=== PATIENT | male | born 1950 | race African-American/Black ===

== ENCOUNTER 2017-01-26 10:22 | Inpatient (IN) | payer BC, MEDICAID ==
[~2017-01-26] VITALS: Ht 172.7 cm; Wt 82.1 kg
[2017-01-26] MEDS ORDERED: NITROGLYCERIN PACKET 1 GM PACKET TD ONE (10:30)
[2017-01-26] MEDS ORDERED: ASPIRIN 81 MG TAB.CHEW PO ONE (10:30)
--- NOTE | 2017-01-26 10:30 | NUR ---
LAB AT BEDSIDE BLOOD SAMPLE COLLECTED SENT TO LAB
[2017-01-26] MEDS ORDERED: ASPIRIN EC 81 MG TABLET.DR PO ONE (10:35)
[2017-01-26] MEDS ORDERED: NITROGLYCERIN PACKET 1 GM PACKET ONE (10:36)
[2017-01-26 10:40] LABS: MONOCYTES # (AUTO) 0.6 /CMM (0.1-1.30)
--- NOTE | 2017-01-26 10:46 | NUR ---
XRAY AT [facility]
[2017-01-26 10:47] LABS: BASOPHILS # (AUTO) 0.2 /CMM (0.0-0.2); NEUTROPHILS # (AUTO) 3.1 /CMM (1.8-8.9)
[2017-01-26 10:50] LABS: BASOPHILS % (AUTO) 3.7 % (0.0-2.0); EOSINOPHILS % (AUTO) 0.6 % (0.0-6.0); HEMATOCRIT 53 % (39-51); LYMPHOCYTES # (AUTO) 2.2 /CMM (0.8-4.8); LYMPHOCYTES % (AUTO) 36.5 % (20.0-44.0); MEAN CORPUSCULAR HEMOGLOBIN 31 PG (26.0-33.0); MEAN CORPUSCULAR HGB CONC 35 g/dl (31.0-36.0); MEAN CORPUSCULAR VOLUME 90 fL (80-96); MONOCYTES % (AUTO) 9.6 % (2.0-12.0); NEUTROPHILS % (AUTO) 49.6 % (43.0-81.0); PLATELET COUNT (AUTO) 208 /CMM (150-450); RDW COEFFICIENT OF VARIATION 13.1 (11.5-15.0); RED BLOOD CELL COUNT(AUTO) 5.84 MIL/uL (4.5-6.0); WHITE BLOOD COUNT (AUTO) 6.1 K/uL (4.3-11.0)
[2017-01-26 10:51] LABS: HEMOGLOBIN 18.3 g/dL (13.5-17.5)
[2017-01-26 10:56] LABS: CALCIUM, SERUM 9.5 mg/dL (8.5-10.1); CREATININE 1.2 mg/dL (0.6-1.3)
[2017-01-26 10:59] LABS: INR 1.06 (0.87-1.13)
[2017-01-26] MEDS ORDERED: QUET25TA PO (11:00)
[2017-01-26] MEDS ORDERED: BUPR300T54 PO (11:00)
[2017-01-26] MEDS ORDERED: IBUP-1955 PO (11:00)
[2017-01-26] MEDS ORDERED: AMLO10TA2 PO (11:00)
[2017-01-26] MEDS ORDERED: VALS1TAB54 PO (11:00)
[2017-01-26 11:06] LABS: BILIRUBIN,DIRECT 0.5 mg/dL (0.0-0.2); BILIRUBIN,TOTAL 2.1 mg/dL (0.2-1.0); TOTAL PROTEIN, SERUM 8.3 g/dL (6.4-8.2)
[2017-01-26 11:12] LABS: TROPONIN I 0.048 ng/mL (0.00-0.056)
--- NOTE | 2017-01-26 11:28 | NUR ---
DR. CECI BATRES SIZING END BANDER
[2017-01-26 11:32] LABS: EOSINOPHILS % (MANUAL) 1 % (0-4); LYMPHOCYTES % (MANUAL) 44 % (16-48); MONOCYTES % (MANUAL) 9 % (0-11.0); NEUTROPHILS % (MANUAL) 46 (42-76)
[2017-01-26 11:33] LABS: PLATELET ESTIMATE ADEQUATE
[2017-01-26] MEDS ORDERED: POTASSIUM CHLORIDE 20 MEQ TAB.PRT.SR PO ONE (12:00)
--- NOTE | 2017-01-26 12:28 | NUR ---
GAVE REPORT TO GERARDO ANTON TELE 309-1 CECI SÁNCHEZ ADMITTING. CHEST PAIN DX
--- NOTE | 2017-01-26 12:28 | NUR ---
WILL TRANSFER VIA ACLS PROTOCOL
[2017-01-26] MEDS ORDERED: POTASSIUM CL. PREMIX PERIPHER. 50 ML ONE (12:30)
[2017-01-26] MEDS ORDERED: POTASSIUM CHLORIDE 20 MEQ POWDER PACKET ONE (12:30)
[2017-01-26] MEDS ORDERED: IV SET PRIMARY PUMP SET 1 EA INFUS.SET MC ONE ×2 (12:30→19:42)
--- NOTE | 2017-01-26 12:30 | NUR ---
APPLICATION INFRASTRUCTURE ENGINEER NOTES RECEIVED PATIENT IN STABLE CONDITION FROM ER NURSE WITH PAPERWORK, PERSONAL BELONGINGS AND FAMILY MEMBER AT BEDSIDE. DR AWARE TO DO MED REC AND FINISH ADMISSION ORDERS. ORDERED DVT PUMP AND IV POLE AND PUMP FROM [facility]TR[facility]. PATIENT WISHES TO BE FULL CODE. GAVE CONTAINER FOR DENTURES, ALL NEEDS MET. ORIENTED TO TV SET AND CALL LIGHT. CALL LIGHT WITHIN REACH, 2 1/2 SIDE RAILS UP FOR SAFETY, NONSKID SOCKS ON, BEDSIDE TABLE WITHIN REACH. PATIENT AMBULATORY, NO S/S OF SOB OR DIZZINESS. PATIENT WITH COMPLAINTS OF THROBBING 7/10 CHEST (PECTORAL) MUSCLE PAIN, AND THROAT PAIN, FOLLOWED UP WITH DR CARR: PAIN MEDICATION. WAITING FOR RESPONSE. REPOSITIONED PATIENT COMFORTABLY, BUT PAIN STILL REQUESTING PAIN MEDICATION. PATIENT RESTING IN STABLE CONDITION, WAITING FOR SNACK FROM KITCHEN TO ARRIVE. WILL CONTINUE TO MONITOR.
[2017-01-26] MEDS: POTASSIUM CL. PREMIX PERIPHER. 50 ML IV SCH ×2 (12:36→16:16)
[2017-01-26] MEDS ORDERED: ACETAMINOPHEN 325 MG TABLET PO PRN (13:30)
[2017-01-26] MEDS ORDERED: ZOLPIDEM TARTRATE 5 MG TABLET PO PRN (13:30)
[2017-01-26] MEDS ORDERED: ONDANSETRON HCL/PF 4 MG/2 ML VIAL IVP PRN (13:30)
[2017-01-26] MEDS ORDERED: Z GUARD REMEDY 2 OZ OINT TP PRN (13:30)
[2017-01-26] MEDS ORDERED: MORPHINE SULFATE INJ 2 MG/ML DISP.SYRIN IV PRN (13:30)
[2017-01-26] MEDS ORDERED: IBUPROFEN 600 MG TABLET PO PRN (15:00)
[2017-01-26 16:00] VITALS: BP 152/103
[2017-01-26] MEDS: ENOXAPARIN SODIUM 40 MG/0.4 ML DISP.SYRIN SQ SCH (16:18)
[2017-01-26] MEDS: METFORMIN 500 MG TABLET PO SCH (18:04)
--- NOTE | 2017-01-26 18:05 | NUR ---
PATIENT COMPLAINED OF 6/10 PAIN AFTER MORPHINE ADMINISTRATION. ADMINISTERED TYLENOL ORDERED WITH METFORMIN AND ENCOURAGED WATER INTAKE. PATIENT WAS COOPERATIVE. WILL CONTINUE TO MONITOR.
--- NOTE | 2017-01-26 19:35 | NUR ---
COMMUNITY ADMINISTRATOR NOTE RECEIVED PATIENT FROM DAY SHIFT, PATIENT IS ALERT AND ORIENTEDX3, LOOKS WEAK, DENIES RESPIRATORY DISTRESS OR PAIN AT THIS TIME. AMBULATORY WITH STANDBY ASSIST, IV ON LEFT AC 22G IS PATENT AND INTACT, WILL CONNECT NS 100ML/HR. TELE MONITOR SR 93. SRX2, BED IN LOW POSITION, CALL LIGHT WITHIN REACH, WILL CONTINUE TO MONITOR PATIENT.
--- NOTE | 2017-01-26 19:39 | NUR ---
RN PM NOTES PATIENT RESTING IN BED, WAITING FOR SNACK AFTER DINNER, IN STABLE CONDITION, WITH NO COMPLAINTS OF PAIN, SOB OR DISTRESS NOTED. ADMISSION NOTES AND PICTURES COMPLETE. WILL ENDORSE TO NEXT SHIFT.
[2017-01-26 20:00] VITALS: BP 152/101
[2017-01-26] MEDS: IV NS 0.9% 1,000 ML IV PRN (20:03)
[2017-01-26] MEDS: QUETIAPINE FUMARATE 25 MG TABLET PO SCH (21:06)
[2017-01-26] MEDS: hydrALAZINE HCL 50 MG TABLET PO SCH (21:07)
--- NOTE | 2017-01-26 22:20 | NUR ---
SHOPPER INSIGHTS MANAGER NOTE PATIENT REQUESTED TO TAKE SLEEP MED, AMBIEN 5MG PO GIVEN.
[2017-01-27] VITALS: BP 113/74
[2017-01-27 04:00] VITALS: BP 146/100
[2017-01-27 06:30] LABS: BASOPHILS % (AUTO) 0.8 % (0.0-2.0); EOSINOPHILS # (AUTO) 0.1 /CMM (0.0-0.7); EOSINOPHILS % (AUTO) 1.5 % (0.0-6.0); HEMATOCRIT 53 % (39-51); HEMOGLOBIN 18.1 g/dL (13.5-17.5); LYMPHOCYTES # (AUTO) 1.7 /CMM (0.8-4.8); LYMPHOCYTES % (AUTO) 39.2 % (20.0-44.0); MEAN CORPUSCULAR HEMOGLOBIN 31 PG (26.0-33.0); MEAN CORPUSCULAR HGB CONC 34 g/dl (31.0-36.0); MEAN CORPUSCULAR VOLUME 90 fL (80-96); MONOCYTES # (AUTO) 0.4 /CMM (0.1-1.30); MONOCYTES % (AUTO) 9.2 % (2.0-12.0); NEUTROPHILS # (AUTO) 2.2 /CMM (1.8-8.9); NEUTROPHILS % (AUTO) 49.3 % (43.0-81.0); PLATELET COUNT (AUTO) 174 /CMM (150-450); RDW COEFFICIENT OF VARIATION 13.8 (11.5-15.0); RED BLOOD CELL COUNT(AUTO) 5.92 MIL/uL (4.5-6.0); WHITE BLOOD COUNT (AUTO) 4.5 K/uL (4.3-11.0)
[2017-01-27 06:42] LABS: ALBUMIN 3.4 g/dL (3.4-5.0); BILIRUBIN,TOTAL 1.5 mg/dL (0.2-1.0); CALCIUM, SERUM 8.8 mg/dL (8.5-10.1); CREATININE 1.1 mg/dL (0.6-1.3); MAGNESIUM 1.9 mg/dL (1.8-2.4); PHOSPHORUS 3.1 mg/dL (2.5-4.9); POTASSIUM 3.3 mmol/L (3.5-5.1); TOTAL PROTEIN, SERUM 7.3 g/dL (6.4-8.2)
--- NOTE | 2017-01-27 06:53 | NUR ---
HAND PACKER/PACKAGER NOTE PATIENT IS RESTING IN BED COMFORTABLY, DENIES RESPIRATORY DISTRESS OR PAIN AT THIS TIME. IV ON LEFT FA IS PATENT AND INTACT, FLUID IS RUNNING. TELE MONITOR SR 77. WILL ENDORSE TO DAY SHIFT NURSE FOR ISIDRO.
[2017-01-27 07:17] VITALS: BP 148/86
--- NOTE | 2017-01-27 07:30 | NUR ---
MS/RN OPENING NOTE PT. IS AWAKE, A&OX4 IN BED. PT. IS NPO FOR LEXISCAN. NO S/S OF DISTRESS, NO SOB, BREATHING IS EVEN AND UNLABORED. PT. HAS A LEFT ANTECUBITAL IV ACCESS SITE WITH IV FLUIDS INFUSING AT 100ML/HR. PT. HAS A WALKER NEAR BEDSIDE. BED IS IN LOW POSITION, CALL LIGHT WITHIN REACH, AND ALL NEEDS ATTENDED TO.
[2017-01-27 07:31] LABS: THYROID STIMULATING HORMONE 1.43 uIU/mL (0.358-3.74)
[2017-01-27 08:00] VITALS: BP 140/77
[2017-01-27] MEDS ORDERED: REGADENOSON 0.4 MG/5 ML DISP.SYRIN IVP ONE (09:16)
[2017-01-27] MEDS: NICOTINE PATCH (21MG) 21 MG PATCH.TD24 TD SCH (09:51)
[2017-01-27] MEDS: AMLODIPINE BESYLATE 10 MG TABLET PO SCH (09:52)
[2017-01-27] MEDS: hydrALAZINE HCL 50 MG TABLET PO SCH ×3 (09:53→16:51)
[2017-01-27] MEDS: METFORMIN 500 MG TABLET PO SCH ×2 (09:54→16:51)
[2017-01-27] MEDS: BUPROPION XL 150 MG TAB.ER.24 PO SCH (09:54)
[2017-01-27] MEDS: VALSARTAN 80 MG TABLET PO SCH (09:54)
[2017-01-27] MEDS: PANTOPRAZOLE 40 MG TABLET.DR PO SCH (09:54)
[2017-01-27] MEDS: POTASSIUM CHLORIDE 20 MEQ TAB.PRT.SR PO SCH ×3 (10:00→12:22)
--- NOTE | 2017-01-27 12:57 | NUR ---
NM:CARDIAC STRESS TEST WAS COMPLETED.TECH:RB.
[2017-01-27] MEDS: ENOXAPARIN SODIUM 40 MG/0.4 ML DISP.SYRIN SQ SCH (14:43)
[2017-01-27 16:00] VITALS: BP 136/84
--- NOTE | 2017-01-27 19:30 | NUR ---
MS RN OPENING NOTES: PATIENT IN BED, AOX4, ON ROOM AIR, BREATHING EVEN AND UNLABORED. BREATH SOUNDS CLEAR TO AUSCULTATION. DENIES ANY PAIN/ CHEST PAIN OF THIS TIME. PIV OVER LAC G 22 INTACT AND PATENT TO FLUSH. PROVIDED FOR COMFORT AND SAFETY. WILL CONT TO MONITOR./
--- NOTE | 2017-01-27 19:43 | NUR ---
MS/RN CLOSING NOTE PT. IS IN BED SLEEPING. NO S/S OF DISTRESS. PT. IS BREATHING UNLABORED AND EVENLY. WALKER IS NEAR BEDSIDE. BED IS IN LOW POSITION, 2 SIDE RAILS UP, AND CALL LIGHT WITHIN REACH.
[2017-01-27 20:00] VITALS: BP 149/87
[2017-01-27] MEDS: QUETIAPINE FUMARATE 25 MG TABLET PO SCH (22:06)
[2017-01-28] MEDS: IV NS 0.9% 1,000 ML IV PRN (06:01)
--- NOTE | 2017-01-28 06:47 | NUR ---
MS RN CLOSING NOTES: PATIENT IN BED, ASLEEP AT THIS TIME, BUT EASILY AWAKENED BY NAME BEING CALLED. APPEARS CALM AND IN NO DISTRESS. PATIENT DID NOT STATE HAVING ANY VISUAL OR AUDITORY HALLUCINATION, NO INAPPROPRIATE BEHAVIOR NOTED THROUGH SHIFT. PIV OVER LAC G22 INTACT AND PATENTLY RUNNING WITH NS AT 100 ML/HR. PROVIDED FOR COMFORT AND SAFETY. NO ACUTE CHANGE IN CONDITION NOTED THROUGH SHIFT. WILL ENDORSE TO AM RN FOR ISIDRO.
--- NOTE | 2017-01-28 07:42 | NUR ---
MS RN OPENING NOTE PATIENT IS ALERT AND ORIENTED x4. NO PAIN AT THIS TIME. NO SOB OR DISTRESS NOTED. IV INTACT AND PATENT NO REDNESS OR SWELLING NOTED. NO VISUAL OR AUDITORY HALLUCINATIONS PRESENT AT THIS TIME. CALL LIGHT WITHIN REACH. SAFETY MEASURES IMPLEMENTED. ABLE TO COMMUNICATE NEEDS. WILL CONTINUE TO MONITOR
[2017-01-28 08:00] VITALS: BP 149/92
[2017-01-28] MEDS: AMLODIPINE BESYLATE 10 MG TABLET PO SCH (08:20)
[2017-01-28] MEDS: BUPROPION XL 150 MG TAB.ER.24 PO SCH (08:20)
[2017-01-28] MEDS: NICOTINE PATCH (21MG) 21 MG PATCH.TD24 TD SCH (08:20)
[2017-01-28] MEDS: METFORMIN 500 MG TABLET PO SCH (08:20)
[2017-01-28] MEDS: PANTOPRAZOLE 40 MG TABLET.DR PO SCH (08:20)
[2017-01-28] MEDS: hydrALAZINE HCL 50 MG TABLET PO SCH ×2 (08:21→12:20)
[2017-01-28] MEDS: VALSARTAN 80 MG TABLET PO SCH (08:21)
[2017-01-28 12:20] VITALS: BP 132/91
--- NOTE | 2017-01-28 13:30 | NUR ---
MS RN NOTE PATIENT REFUSED TO HAVE DISCHARGE PICTURES TAKEN, PATIENT STATED "I'M SORRY IM LEAVING TODAY BUT NO PICTURES PLEASE" i EXPLAINED TO PATIENT THE REASON FOR DISCHARGE PICTURES BUT PATIENT POLITELY REFUSED.
[2017-01-28] MEDS ORDERED: ATOR10TA GT (13:35)
[2017-01-28] MEDS ORDERED: ASPI81TA2 PO (13:35)
[2017-01-28] MEDS: ENOXAPARIN SODIUM 40 MG/0.4 ML DISP.SYRIN SQ SCH (14:08)
--- NOTE | 2017-01-28 15:27 | NUR ---
MS ELECTROMECHANICAL TECHNICIAN NOTE PATIENT IS ALERT AND ORIENTED x4. NO PAIN AT THIS TIME. NO SOB OR DISTRESS NOTED. ALL DUE MEDICATION GIVEN ORDERED. SAFETY MEASURES IMPLEMENTED. PATIENT BELONGINGS ACCOUNTED FOR. IV REMOVED, SKIN INTACT. DISCHARGE INSTRUCTIONS GIVEN TO PATIENT AND BROTHER. LEFT VIA PRIVATE CAR WITH BROTHER. PATIENT GAVE DISCHARGE INSTRUCTIONS BACK.
== END 2017-01-28 15:25 | disposition home or self-care (01) | DRG 198 ==
LOC: ER 10:24 → TELE 11:57 → MED 01-27 09:08
PROVIDERS: ADMIT Nurse Practitioner Acute Care; ATTEND Nurse Practitioner Acute Care
DX: I25.10 Atherosclerotic heart disease of native coronary artery without angina pectoris (principal); I10 Essential (primary) hypertension; E11.9 Type 2 diabetes mellitus without complications; E78.5 Hyperlipidemia, unspecified; E87.6 Hypokalemia; I25.2 Old myocardial infarction; E80.4 Gilbert syndrome; E86.0 Dehydration; F17.210 Nicotine dependence, cigarettes, uncomplicated; F20.0 Paranoid schizophrenia; Z79.899 Other long term (current) drug therapy; R74.0 Nonspecific elevation of levels of transaminase and lactic acid dehydrogenase [LDH]; Z86.19 Personal history of other infectious and parasitic diseases
CPT/HCPCS: 36415; 71010-TC; 80048-TC; 80053-TC; 80061-TC; 80076-TC; 83735-TC; 84100-TC; 84443-TC; 84484-TC; 85025-TC; 85730-TC; 87081-TC; 93307-TC; A4606; A9502; J1650; J2270; J2785; J3480; J7030; Z7610

== ENCOUNTER 2017-07-30 01:09 | Emergency (ER) | payer BC ==
[~2017-07-30] VITALS: Ht 180.3 cm; Wt 82.1 kg
[~2017-07-30 01:09] MED LIST: AMLO10TA2 PO; ASPI81TA2 PO; ATOR10TA GT; BUPR300T54 PO; QUET25TA PO; VALS1TAB54 PO
--- NOTE | 2017-07-30 01:20 | NUR ---
TO BED 4 A 67 YO MALE PATIENT BIBRA C/O BILAT UPPER LEG PAIN. PATIENT IS AAOX4, NAD NOTED, VSS. PER PATIENT THIS PAIN ON HIS LEGS ARE CHRONIC, JUST '"WORSE TODAY THAT HE CAN NO LONGER WALK." COMFORT MEASURES RENDERED. GOWNED. AWAITING FOR ER MD HARTLEY.
[2017-07-30] MEDS ORDERED: ONDANSETRON HCL/PF 4 MG/2 ML VIAL IVP ONE (02:00)
[2017-07-30] MEDS ORDERED: MORPHINE SULFATE INJ 2 MG/ML DISP.SYRIN IV ONE (02:00)
--- NOTE | 2017-07-30 02:00 | NUR ---
started a saline lock on the left hand g20.
[2017-07-30] MEDS ORDERED: MORPHINE SULFATE INJ 10 MG/ML DISP.SYRIN ONE (02:11)
[2017-07-30] MEDS ORDERED: ONDANSETRON HCL/PF 4 MG/2 ML VIAL ONE (02:12)
--- NOTE | 2017-07-30 02:17 | NUR ---
medicated patient as ordered by Dr Meyers.
[2017-07-30 02:45] LABS: BASOPHILS % (AUTO) 0.8 % (0.0-2.0); EOSINOPHILS # (AUTO) 0.1 /CMM (0.0-0.7); EOSINOPHILS % (AUTO) 1.9 % (0.0-6.0); HEMATOCRIT 57 % (39-51); LYMPHOCYTES # (AUTO) 2.2 /CMM (0.8-4.8); LYMPHOCYTES % (AUTO) 47.4 % (20.0-44.0); MEAN CORPUSCULAR HEMOGLOBIN 31 PG (26.0-33.0); MEAN CORPUSCULAR HGB CONC 34 g/dl (31.0-36.0); MEAN CORPUSCULAR VOLUME 91 fL (80-96); MONOCYTES # (AUTO) 0.3 /CMM (0.1-1.30); MONOCYTES % (AUTO) 7.4 % (2.0-12.0); NEUTROPHILS % (AUTO) 42.5 % (43.0-81.0); PLATELET COUNT (AUTO) 199 /CMM (150-450); RDW COEFFICIENT OF VARIATION 13.4 (11.5-15.0); RED BLOOD CELL COUNT(AUTO) 6.26 MIL/uL (4.5-6.0); WHITE BLOOD COUNT (AUTO) 4.6 K/uL (4.3-11.0)
[2017-07-30 02:48] LABS: HEMOGLOBIN 19.2 g/dL (13.5-17.5)
[2017-07-30 02:59] LABS: CALCIUM, SERUM 8.8 mg/dL (8.5-10.1)
[2017-07-30 03:02] LABS: INR 0.98 (0.87-1.13); PROTHROMBIN TIME 10.2 SECS (9.5-12.7)
--- NOTE | 2017-07-30 03:05 | NUR ---
MD AWARE OF PT B/P, NO NEW ORDERS RECEIVED. PT STATES TAKES 2 DIFFERENT KINDS OF HYPERTENSIVE MEDICATIONS AND STATES DOESN'T REMEMBER IF HE TOOK IT TODAY.
[2017-07-30 03:10] LABS: EOSINOPHILS % (MANUAL) 2 % (0-4); LYMPHOCYTES % (MANUAL) 51 % (16-48); MONOCYTES % (MANUAL) 6 % (0-11.0); NEUTROPHILS % (MANUAL) 41 (42-76)
--- NOTE | 2017-07-30 03:28 | NUR ---
ptient taken to ct.
[2017-07-30] MEDS ORDERED: POTASSIUM CHLORIDE 20 MEQ TAB.PRT.SR PO ONE ×2 (03:30→04:14)
--- NOTE | 2017-07-30 03:31 | NUR ---
PT TO CT VIA STRETCHER, NAD NOTED.
[2017-07-30] MEDS ORDERED: IOHEXOL-300 100 ML VIAL IV ONE (03:34)
[2017-07-30] MEDS ORDERED: IV NS 0.9% 250 ML IV ONE (03:34)
--- NOTE | 2017-07-30 03:56 | NUR ---
PT BACK FROM CT, NAD NOTED. PT AMBULATORY TO RESTROOM.
--- NOTE | 2017-07-30 04:16 | NUR ---
MEDICATED PER MD ORDERS.
--- NOTE | 2017-07-30 06:36 | NUR ---
PT RESTING QUIETLY. AROUSES TO VERBAL STIMULI. RESP EVEN AND UNLABORED, NAD NOTED.
--- NOTE | 2017-07-30 07:11 | NUR ---
IV removed. Catheter intact and site benign. Pressure and 4x4 applied to site. No bleeding noted.Patient discharged to home in stable condition. Written and verbal after care instructions given. Patient verbalizes understanding of instruction. Pt ambulatory with a steady gait.
[2017-07-30 07:12] VITALS: BP 187/103
== END 2017-07-30 07:13 | disposition home or self-care (01) ==
LOC: ER 01:17
DX: M79.605 Pain in left leg (principal); M79.604 Pain in right leg; M48.061 Spinal stenosis, lumbar region without neurogenic claudication; F20.9 Schizophrenia, unspecified; I10 Essential (primary) hypertension; I70.0 Atherosclerosis of aorta; M16.11 Unilateral primary osteoarthritis, right hip; N40.0 Benign prostatic hyperplasia without lower urinary tract symptoms; M25.78 Osteophyte, vertebrae; I25.2 Old myocardial infarction; M51.26 Other intervertebral disc displacement, lumbar region; Z79.82 Long term (current) use of aspirin; Z88.0 Allergy status to penicillin
CPT/HCPCS: 36415; 72132; 80048; 82550; 85025; 85730; 96374; 96375; 99285; A4606; J2270; J2405; J7050; Q9967; Z7610

== ENCOUNTER 2017-10-24 10:49 | Inpatient (IN) | payer BC ==
[~2017-10-24] VITALS: Ht 180.3 cm; Wt 67.4 kg
[~2017-10-24 10:49] MED LIST changes: -AMLO10TA2 PO; +AMLO10TA6 PO; +ASPI-1169 PO; -ASPI81TA2 PO
--- NOTE | 2017-10-24 10:57 | NUR ---
JAMES FROM HOME DT LEFT SIDED WEAKNESS X 2 DAYS. PATIENT RECEIVED AWAKE AND ALERT. NOTED WITH SLIGHT WEAKNESS ON LEFT SIDE. PATIENT USES CANE FOR ASSIST. NO FACIAL DROOP NOTED. SKIN IS WARM TO TOUCH AND NON DIAPHORETIC. AFEBRILE. VSS. GOWNED AND PLACED ON TELE MONITOR,. PENDING MD HARTLEY
[2017-10-24] MEDS ORDERED: hydrALAZINE HCL IV 20 MG VIAL ONE ×2 (11:27→12:07)
[2017-10-24] MEDS ORDERED: hydrALAZINE HCL IV 20 MG VIAL IV ONE ×2 (11:30→12:30)
--- NOTE | 2017-10-24 12:20 | NUR ---
PT TAKEN TO CT.
[2017-10-24 12:28] LABS: SERUM AMMONIA 43 umol/L (11-32); THYROID STIMULATING HORMONE 0.742 uIU/mL (0.358-3.74)
[2017-10-24 12:53] LABS: BASOPHILS # (AUTO) 0.1 /CMM (0.0-0.2); BASOPHILS % (AUTO) 1.3 % (0.0-2.0); EOSINOPHILS % (AUTO) 0.6 % (0.0-6.0); HEMATOCRIT 56 % (39-51); LYMPHOCYTES # (AUTO) 2.1 /CMM (0.8-4.8); LYMPHOCYTES % (AUTO) 33.6 % (20.0-44.0); MEAN CORPUSCULAR HGB CONC 35 g/dl (31.0-36.0); MEAN CORPUSCULAR VOLUME 89 fL (80-96); MONOCYTES # (AUTO) 0.4 /CMM (0.1-1.30); MONOCYTES % (AUTO) 6.6 % (2.0-12.0); NEUTROPHILS # (AUTO) 3.8 /CMM (1.8-8.9); NEUTROPHILS % (AUTO) 57.9 % (43.0-81.0); PLATELET COUNT (AUTO) 208 /CMM (150-450); RDW COEFFICIENT OF VARIATION 12.9 (11.5-15.0); RED BLOOD CELL COUNT(AUTO) 6.26 MIL/uL (4.5-6.0); WHITE BLOOD COUNT (AUTO) 6.4 K/uL (4.3-11.0)
[2017-10-24 12:54] LABS: HEMOGLOBIN 19.4 g/dL (13.5-17.5)
[2017-10-24 13:02] LABS: CALCIUM, SERUM 9.8 mg/dL (8.5-10.1); CARBON DIOXIDE 26 mmol/L (21-32); CHLORIDE 104 mmol/L (98-107); GLUCOSE 77 mg/dL (74-106); POTASSIUM 3.3 mmol/L (3.5-5.1); SODIUM SERUM 139 mmol/L (136-145); UREA NITROGEN, BLOOD 12 mg/dL (7-18)
[2017-10-24 13:07] LABS: ALANINE AMINOTRANSFERASE 36 U/L (12-78); ALBUMIN 3.8 g/dL (3.4-5.0); ALKALINE PHOSPHATASE 117 U/L (46-116); ASPARTATE AMINOTRANSFERASE 34 U/L (15-37); BILIRUBIN,DIRECT 0.2 mg/dL (0.0-0.2); BILIRUBIN,TOTAL 1.4 mg/dL (0.2-1.0); TOTAL PROTEIN, SERUM 8.2 g/dL (6.4-8.2)
[2017-10-24 13:08] LABS: ACETAMINOPHEN < 2 ug/ml (10-30); ALCOHOL, BLOOD < 3 mg/dL (0-0); SALICYLATE 1.8 mg/dL (2.8-20.0)
[2017-10-24 13:09] LABS: TROPONIN I 0.038 ng/mL (0.00-0.056)
--- NOTE | 2017-10-24 13:15 | NUR ---
CALLED PHARMACIST FOR LABATALOL
[2017-10-24 13:23] LABS: APPEARANCE,URINE CLEAR (CLEAR); BILIRUBIN,URINE NEGATIVE (NEGATIVE); BLOOD, URINE TRACE Ery/uL (NEGATIVE); COLOR,URINE YELLOW (YELLOW); KETONES,URINE NEGATIVE (NEGATIVE); LEUKOCYTE ESTERASE ,URINE NEGATIVE (NEGATIVE); NITRITE, URINE NEGATIVE (NEGATIVE); PH,URINE 6.5 (5.0-8.0); PROTEIN,URINE TRACE mg/dl (NEGATIVE); UGLUCOSE NEGATIVE (NEGATIVE)
--- NOTE | 2017-10-24 13:23 | NUR ---
TEXTED DR. BARNARD FOR MRI APPROVAL.
--- NOTE | 2017-10-24 13:25 | NUR ---
DR. BARNARD TEXTED BACK, ON HOLD FOR NOW HE WILL LET US KNOW.
[2017-10-24] MEDS ORDERED: LABETALOL HCL IV 100MG VIAL IV ONE (13:30)
[2017-10-24 13:34] LABS: BACTERIA,URINE Rare /HPF (None Seen); SQUAMOUS EPITHELIAL CELL,UR Rare /HPF (None Seen); WBC,URINE 0-2 /HPF (0-3)
--- NOTE | 2017-10-24 13:40 | NUR ---
MRI CX PER DR. BARNARD
[2017-10-24 13:49] LABS: EOSINOPHILS % (MANUAL) 2 % (0-4); LYMPHOCYTES % (MANUAL) 32 % (16-48); MONOCYTES % (MANUAL) 3 % (0-11.0); NEUTROPHILS % (MANUAL) 63 (42-76)
[2017-10-24 14:48] VITALS: BP 161/109
[2017-10-24] MEDS ORDERED: ZOLPIDEM TARTRATE 5 MG TABLET PO PRN (15:00)
[2017-10-24] MEDS ORDERED: ONDANSETRON HCL/PF 4 MG/2 ML VIAL IVP PRN (15:00)
[2017-10-24] MEDS ORDERED: MAG HYDROX/AL HYDROX/SIMETH 30 ML UDC PO PRN (15:00)
[2017-10-24] MEDS ORDERED: MAGNESIUM HYDROXIDE 30 ML UDC PO PRN (15:00)
[2017-10-24] MEDS ORDERED: ACETAMINOPHEN 325 MG TABLET PO PRN (15:00)
[2017-10-24] MEDS ORDERED: Z GUARD REMEDY 2 OZ OINT TP PRN (15:00)
--- NOTE | 2017-10-24 15:00 | NUR ---
SQL MANAGER NOTE RECEIVED PATIENT ROM ER WITH DX HYPERTENSIVE EMERGENCY, ALERT ORIENTED X3 , PLACED ON TELE MONITOR SR , HOSPITAL,ORIENTATION DONE ,ADMITTED UNDER CARE DR RAMOS , LT WRIST HL INTACT BODY CHECK DONE , ALL NEEDS ATTENDED NO SOB NOTED NORCO FOR PAIN WILL BE GIVEN ORDERED ,BED IN LOWEST AND LOCKED POSITION , PLAN OF CARE DISCUSSED WITH PATIENT, CALL LIGHT WITHIN REACH
[2017-10-24] MEDS: HYDROCODONE/APAP 5/325MG 1 EACH TABLET PO PRN ×2 (15:25→19:39)
[2017-10-24 16:00] VITALS: BP 161/109
[2017-10-24] MEDS: hydrALAZINE HCL IV 20 MG VIAL IV PRN (18:03)
--- NOTE | 2017-10-24 18:07 | NUR ---
telepathist note bp 176/109 hydralazine 10 mg ivp given as ordered ,will f\u
--- NOTE | 2017-10-24 18:08 | NUR ---
VOLCANOLOGY PROFESSOR NOTE SPOKE WITH DR RAMOS NOTIFIED THAT PATIENT HAS HX DX DM ,ON METFORMIN 500 BID ,STATED OK TO ORDER , BLOOD SUGAR 127 MG\DL AT THIS TIME, WILL F]U
[2017-10-24] MEDS: METFORMIN 500 MG TABLET PO SCH (18:12)
--- NOTE | 2017-10-24 18:36 | NUR ---
BEAD PICKER NOTE SPOKE WITH DR RAMOS , NOTIFIED THAT PATIENT STILL IN PAIN AN WANT DORINA , SAY NOT AT THIS TIME TILL HIS LEVEL OF CONSCIOUSNESS WILL BE MORE ALERT AND WILL SEE NEUROLOGIST Addendum: 10/24/17 at 1841 by PARTHA KATZ RN DR RAMOS AT BEDSIDE,SEEN PATIENT
[2017-10-24 20:00] VITALS: BP 143/91
--- NOTE | 2017-10-24 20:14 | NUR ---
RN OPENING NOTE RECEIVED PATIENT IN THE BED, ALERT, ORIENTED, COMPLAINS OF PAIN IN LOWER EXTREMITIES 04/10, ABLE TO MOVE ALL EXTREMITIES, ADMINISTERED PAIN MEDICATION, ELEVATED BP, PAGED DR IVETTE VIDALES, ORDERS CARRIED OUT, INSTRUCTED PATIENT TO USE CALL LIGHT, BED ALARM ON , BED IN THE LOWEST POSITION, WILL CONTINUE TO MONITOR PATIENT
[2017-10-24] MEDS ORDERED: AMLODIPINE BESYLATE 10 MG TABLET PO ONE (20:30)
[2017-10-24] MEDS ORDERED: VALSARTAN 80 MG TABLET PO ONE (20:30)
[2017-10-24] MEDS: QUETIAPINE FUMARATE 25 MG TABLET PO SCH (21:25)
[2017-10-24] MEDS: ATORVASTATIN 10 MG TABLET PO SCH (21:25)
[2017-10-24] MEDS: BLOOD SUGAR DIAGNOSTIC 1 EACH STRIP IN SCH (21:30)
--- NOTE | 2017-10-24 22:34 | NUR ---
RN NOTE RECHECKED BP FRPM 191/111, BP IS 148/92
[2017-10-25] VITALS: BP 128/87
[2017-10-25 04:00] VITALS: BP 121/72
--- NOTE | 2017-10-25 07:40 | NUR ---
UTILIZATION SPECIALIST OPENING NOTE RECEIVED PATIENT IN THE BED, ALERT, ORIENTED, COMPLAINS OF PAIN IN LOWER EXTREMITIES 05/11, ABLE TO MOVE ALL EXTREMITIES, WILL ADMINISTER PAIN MEDICATION, ON TELE MONITORING HR 78, USING URINAL AT BEDSIDE, UNSTEADY GAIT AT THIS TIME, IV LEFT HAND 20 GAUGE CLEAN AND PATENT BED ALARM ON, BED IN THE LOWEST POSITION, WILL CONTINUE TO MONITOR PATIENT
[2017-10-25 08:00] VITALS: BP 168/88
[2017-10-25 08:30] LABS: BASOPHILS % (AUTO) 0.7 % (0.0-2.0); EOSINOPHILS % (AUTO) 1.2 % (0.0-6.0); HEMATOCRIT 52 % (39-51); HEMOGLOBIN 17.9 g/dL (13.5-17.5); LYMPHOCYTES # (AUTO) 1.9 /CMM (0.8-4.8); LYMPHOCYTES % (AUTO) 38.2 % (20.0-44.0); MEAN CORPUSCULAR HGB CONC 35 g/dl (31.0-36.0); MEAN CORPUSCULAR VOLUME 90 fL (80-96); MONOCYTES # (AUTO) 0.4 /CMM (0.1-1.30); MONOCYTES % (AUTO) 7.6 % (2.0-12.0); NEUTROPHILS # (AUTO) 2.6 /CMM (1.8-8.9); NEUTROPHILS % (AUTO) 52.3 % (43.0-81.0); PLATELET COUNT (AUTO) 182 /CMM (150-450); RDW COEFFICIENT OF VARIATION 13.6 (11.5-15.0); RED BLOOD CELL COUNT(AUTO) 5.77 MIL/uL (4.5-6.0)
[2017-10-25] MEDS: BLOOD SUGAR DIAGNOSTIC 1 EACH STRIP IN SCH ×4 (08:36→22:07)
[2017-10-25] MEDS: METFORMIN 500 MG TABLET PO SCH ×2 (08:43→17:29)
[2017-10-25] MEDS: BUPROPION XL 150 MG TAB.ER.24 PO SCH (08:43)
[2017-10-25] MEDS: HYDROCODONE/APAP 5/325MG 1 EACH TABLET PO PRN ×2 (08:44→19:25)
[2017-10-25] MEDS: AMLODIPINE BESYLATE 10 MG TABLET PO SCH (08:45)
[2017-10-25] MEDS: VALSARTAN 80 MG TABLET PO SCH (08:45)
[2017-10-25] MEDS: HYDROCHLOROTHIAZIDE 25 MG TABLET PO SCH (08:45)
[2017-10-25 08:50] LABS: CALCIUM, SERUM 9.2 mg/dL (8.5-10.1); CREATININE 1.1 mg/dL (0.6-1.3); PHOSPHORUS 2.9 mg/dL (2.5-4.9); POTASSIUM 3.1 mmol/L (3.5-5.1)
[2017-10-25] MEDS ORDERED: ASPIRIN 81 MG TAB.CHEW PO SCH (09:00)
[2017-10-25] MEDS ORDERED: Medication Not On Formulary EA (Valsartan/Hydrochlorothiazide (Diovan Hct 320-25 Mg Tabl PO SCH (09:00)
--- NOTE | 2017-10-25 10:26 | NUR ---
WOUND CARE CONSULT: PT PRESENTS WITH INTACT SKIN. PT IS CONTINENT AND AMBULATORY BUT UNSTEADY GAIT. CURRENT GABI SCORE IS 17. WILL SEE PRN.
[2017-10-25] MEDS: POTASSIUM CHLORIDE 20 MEQ TAB.PRT.SR PO SCH ×2 (10:48→11:30)
[2017-10-25 12:00] VITALS: BP 149/94
[2017-10-25] MEDS ORDERED: POTASSIUM CHLORIDE 20 MEQ TAB.PRT.SR PO SCH (13:00)
--- NOTE | 2017-10-25 14:37 | NUR ---
ELECTROENCEPHALOGRAPHIC TECHNOLOGIST NOTES REPORT RECEIVED FROM ANMOL ANTON FOR ISIDRO.
--- NOTE | 2017-10-25 14:40 | NUR ---
AUTOMATIC LUMP MAKING MACHINE TENDER NOTES REPORT GIVEN TO SLOANE WALLACE FOR CONTINUITY OF CARE, PATIENT JUST RETURNED FROM MRI OF BRAIN, BEFORE THAT ULTRASOUND OF ABDOMEN.
--- NOTE | 2017-10-25 15:42 | NUR ---
COSMETICS AND TOILETRIES SALESPERSON NOTES BRAIN MRI RESULT RELAYED TO DR. DIRK RAMOS, HE WILL CALL DR. CRAIG. PER DR. RAMOS NO CODE STROKE NEEDED AT THIS TIME. IMPRESSION: 1. Scattered acute lacunar infarcts, seen in the right thalamus, left parietal subcortical white matter, and right temporal and occipital periventricular subcortical white matter. These appear possibly embolic. 2. Mild diffuse cerebral volume loss. Mild to moderate small vessel ischemic changes. 3. 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 4. No visualized abnormal mass or acute intracranial bleed. PLACED A CALL TO DR. CRAIG VIA EXCHANGE [phone]. RESULTS RELAYED WELL.
[2017-10-25 16:00] VITALS: BP 167/94
--- NOTE | 2017-10-25 19:28 | NUR ---
SAUSAGE TIER CLOSING NOTES PATIENT RESTING COMFORTABLY, NOT IN ANY DISTRESS. ON TELE MONITORING HR 76, USING URINAL AT BEDSIDE, UNSTEADY GAIT AT THIS TIME, IV LEFT HAND 20 GAUGE CLEAN AND PATENT BED ALARM ON, BED IN THE LOWEST POSITION, ALL NEEDS MET, NO OTHER SIGNIFICANT CHANGE IN CONDITION. ENDORSED TO NEXT SHIFT. MRI OF BRAIN RESULT RELAYED TO DR. RAMOS AND DR. CRAIG.
[2017-10-25 20:00] VITALS: BP 158/90
[2017-10-25] MEDS: ATORVASTATIN 10 MG TABLET PO SCH (22:07)
[2017-10-25] MEDS: QUETIAPINE FUMARATE 25 MG TABLET PO SCH (22:07)
[2017-10-26] VITALS: BP_SYST 131; BP_SYST 149; BP_DIAS 94; BP_DIAS 97
[2017-10-26 04:00] VITALS: BP 153/68
--- NOTE | 2017-10-26 07:20 | NUR ---
DESIGNER/WRITER CLOSING NOTES PATIENT RESTING COMFORTABLY, NOT IN ANY RESPIRATORY DISTRESS. ON TELE MONITORING HR 81,SR, USING URINAL AT BEDSIDE, UNSTEADY GAIT AT THIS TIME, IV LEFT WRIST 22 GAUGE CLEAN AND PATENT BED ALARM ON, BED IN THE LOWEST POSITION, ALL NEEDS MET, NO OTHER SIGNIFICANT CHANGE IN CONDITION, SIDE RAILS UP X 2, WILL ENDORSED CARE TO NEXT SHIFT
--- NOTE | 2017-10-26 07:24 | NUR ---
MARQUETRY WORKER NOTES RECEIVED PT ON BED ALERT ORIENTEDX3. ON ROOM AIR SETTING SATURATING WELL NO SIGN OF RESPIRATORY DISTRESS. IV SITE ON LEFT WRIST #22G NO SIGN OF REDNESS OR PAIN. HEAD OF BED ELEVATED. SIDE RAILS UP. CALL LIGHT IS WITHIN REACH. WILL CONTINUE TO MONITOR PT CLOSELY.
[2017-10-26] MEDS: BLOOD SUGAR DIAGNOSTIC 1 EACH STRIP IN SCH ×4 (08:07→21:26)
[2017-10-26] MEDS: BUPROPION XL 150 MG TAB.ER.24 PO SCH (08:08)
[2017-10-26] MEDS: ASPIRIN EC 325 MG TABLET.DR PO SCH (08:08)
[2017-10-26] MEDS: HYDROCHLOROTHIAZIDE 25 MG TABLET PO SCH (08:08)
[2017-10-26] MEDS: METFORMIN 500 MG TABLET PO SCH ×2 (08:08→17:14)
[2017-10-26] MEDS: AMLODIPINE BESYLATE 10 MG TABLET PO SCH (08:09)
[2017-10-26] MEDS: VALSARTAN 80 MG TABLET PO SCH (08:10)
--- NOTE | 2017-10-26 08:45 | NUR ---
ANIMAL SHELTER CLERK NOTE: RECEIVED REPORT FROM SLOANE BAI FOR CONTINUITY OF CARE.
[2017-10-26 12:00] VITALS: BP 138/86
[2017-10-26 16:00] VITALS: BP 153/68
[2017-10-26] MEDS: HYDROCODONE/APAP 5/325MG 1 EACH TABLET PO PRN ×3 (16:00→21:26)
[2017-10-26 17:54] LABS: BASOPHILS % (AUTO) 0.8 % (0.0-2.0); EOSINOPHILS % (AUTO) 1.7 % (0.0-6.0); HEMATOCRIT 53 % (39-51); HEMOGLOBIN 18.4 g/dL (13.5-17.5); LYMPHOCYTES # (AUTO) 1.8 /CMM (0.8-4.8); MEAN CORPUSCULAR HGB CONC 35 g/dl (31.0-36.0); MEAN CORPUSCULAR VOLUME 90 fL (80-96); MONOCYTES # (AUTO) 0.4 /CMM (0.1-1.30); MONOCYTES % (AUTO) 7.2 % (2.0-12.0); NEUTROPHILS # (AUTO) 3.7 /CMM (1.8-8.9); NEUTROPHILS % (AUTO) 60.3 % (43.0-81.0); PLATELET COUNT (AUTO) 202 /CMM (150-450); RDW COEFFICIENT OF VARIATION 13.3 (11.5-15.0); WHITE BLOOD COUNT (AUTO) 6.1 K/uL (4.3-11.0)
[2017-10-26 18:18] LABS: CALCIUM, SERUM 9.3 mg/dL (8.5-10.1); CREATININE 1.2 mg/dL (0.6-1.3); POTASSIUM 3.7 mmol/L (3.5-5.1)
[2017-10-26 20:00] VITALS: BP 166/91
--- NOTE | 2017-10-26 20:10 | NUR ---
DRUM SPRAYER NOTE: PATIENT IN BED, AWAKE, ALERT X 3. NO SOB NOTED. DENIED PAIN AT THIS TIME. CALL LIGHT WITHIN REACH. BED ALARM ON. NEEDS ANTICIPATED. ENDORSED REPORT TO SLOANE MENDEZ FOR CONTINUITY OF CARE.
[2017-10-26] MEDS: QUETIAPINE FUMARATE 25 MG TABLET PO SCH (21:25)
[2017-10-26] MEDS: ATORVASTATIN 10 MG TABLET PO SCH (21:25)
[2017-10-27] VITALS (7 sets, daily range): BP systolic 131–167; BP diastolic 91–108
--- NOTE | 2017-10-27 06:23 | NUR ---
RN CLOSING NOTE: PATIENT IN BED, AWAKE, ALERT X 3. NO SOB NOTED. DENIED PAIN AT THIS TIME. PT WAS PLACED IN 2 EUGENIO SOFT WRIST RESTRAINTS OVER NIGHT FOR SAFETY CONCERNS. ALL SAFETY PRECAUTIONS TAKEN. CALL LIGHT WITHIN REACH. BED ALARM ON. NURSE SAT WITH PT MOST OF THE SHIFT. NEEDS ANTICIPATED. ENDORSED REPORT TO AM, RN FOR CONTINUITY OF CARE.
[2017-10-27 07:26] LABS: BASOPHILS # (AUTO) 0.1 /CMM (0.0-0.2); BASOPHILS % (AUTO) 1.2 % (0.0-2.0); EOSINOPHILS % (AUTO) 1.6 % (0.0-6.0); HEMATOCRIT 51 % (39-51); HEMOGLOBIN 17.7 g/dL (13.5-17.5); LYMPHOCYTES # (AUTO) 1.8 /CMM (0.8-4.8); LYMPHOCYTES % (AUTO) 31.7 % (20.0-44.0); MEAN CORPUSCULAR HGB CONC 35 g/dl (31.0-36.0); MEAN CORPUSCULAR VOLUME 89 fL (80-96); MONOCYTES # (AUTO) 0.5 /CMM (0.1-1.30); NEUTROPHILS # (AUTO) 3.3 /CMM (1.8-8.9); NEUTROPHILS % (AUTO) 57.5 % (43.0-81.0); PLATELET COUNT (AUTO) 193 /CMM (150-450); RDW COEFFICIENT OF VARIATION 13.6 (11.5-15.0); WHITE BLOOD COUNT (AUTO) 5.8 K/uL (4.3-11.0)
[2017-10-27 07:37] LABS: CALCIUM, SERUM 9.1 mg/dL (8.5-10.1); CREATININE 1.1 mg/dL (0.6-1.3); POTASSIUM 3.5 mmol/L (3.5-5.1)
[2017-10-27] MEDS: BLOOD SUGAR DIAGNOSTIC 1 EACH STRIP IN SCH ×4 (08:34→22:13)
[2017-10-27] MEDS: VALSARTAN 80 MG TABLET PO SCH (08:37)
[2017-10-27] MEDS: METFORMIN 500 MG TABLET PO SCH ×2 (08:37→17:43)
[2017-10-27] MEDS: HYDROCHLOROTHIAZIDE 25 MG TABLET PO SCH (08:37)
[2017-10-27] MEDS: ASPIRIN EC 325 MG TABLET.DR PO SCH (08:37)
[2017-10-27] MEDS: AMLODIPINE BESYLATE 10 MG TABLET PO SCH (08:37)
[2017-10-27] MEDS: BUPROPION XL 150 MG TAB.ER.24 PO SCH (08:40)
[2017-10-27] MEDS: HYDROCODONE/APAP 5/325MG 1 EACH TABLET PO PRN ×3 (08:44→22:12)
[2017-10-27] MEDS: hydrALAZINE HCL IV 20 MG VIAL IV PRN (17:36)
--- NOTE | 2017-10-27 18:44 | NUR ---
PT BP WAS ELEVATED, MEDICATED WITH APRESOLINE 10 MG IV. INITIALLY PT WAS REFUSING TO GET IV RESTARTED BUT INFORMED HIM THAT BP WAS HIGH AND NEEDED TO BE TREATED. BP BETTER NOW, 146/94 HR 85. HL STARTED ON RFA #20. TELE SHOW SR. PT WANTED TO LEAVE AMA BUT DR RAMOS AND SOON SPOKE WITH PT. PT WAS ALLOWED TO SMOKE ONCE TODAY OUTSIDE WITH SITTER. PT AT TIMES UNCOOPERATIVE AND AGITATED. SITTER AT BEDSIDE VERY HELPFUL ABOUT RE ORIENTING PT. WILL CONT TO MONITOR.
--- NOTE | 2017-10-27 20:00 | NUR ---
RN INITIAL NOTES ENTERED ROOM 114 TO GET BEDSIDE REPORT, PT WAS SITING IN BED AND STATED HE WAS GETTING DRESSED TO LEAVE HOSPITAL. PT PROCEED TO GET DRESS. THE AM RN, THE SITTER AND I TRIED TO ENCOURAGE THE PT TO REMAIN IN BED. PT INSISTED ON LEAVING THE HOSPITAL. WE TRIED TO NEGOTIATE BY OFFERING THE PT A OUTSIDE SMOKE BREAK. THE PT BECAME DISRUPTIVE AND SECURITY WAS CALLED. THE PT WAS LATER TAKEN OUTSIDE FOR A SMOKE BREAK.
[2017-10-27] MEDS ORDERED: LORAZEPAM INJ 2 MG/ML VIAL ONE (20:15)
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
--- NOTE | 2017-10-27 20:20 | NUR ---
RN NOTES ARETHA AND TERESAL WAS GIVEN TO PT ORDERED BY .
--- NOTE | 2017-10-27 20:25 | NUR ---
RN NOTES ALL ASSESSMENTS AND SAFETY PRECAUTIONS WAS TAKEN TO ENSURE PT SAFETY. A MEMBER OF THE CRISIS RESPONSE TEAM WAS CALLED. MD WAS NOTIFIED OF PT CONDITION.
[2017-10-27] MEDS ORDERED: HALOPERIDOL LACTATE INJ 5 MG/ML VIAL IM ONE (20:30)
[2017-10-27] MEDS ORDERED: LORAZEPAM INJ 2 MG/ML VIAL IV ONE (20:30)
--- NOTE | 2017-10-27 20:30 | NUR ---
RN NOTES PT WAS MOVED FROM ROOM 114-2 TO 117 -1
[2017-10-27] MEDS ORDERED: HALOPERIDOL LACTATE INJ 5 MG/ML VIAL ONE (20:32)
--- NOTE | 2017-10-27 21:15 | NUR ---
SERVICE OR WORK DISPATCHER NOTES [employer] CAME
--- NOTE | 2017-10-27 21:15 | NUR ---
COLLEGE PHYSICS INSTRUCTOR NOTES INCIDENT REPORT DONE WITH FILE #[id number]
--- NOTE | 2017-10-27 22:01 | NUR ---
CARD SORTER NOTES SPOKE TO JOSH THE BROTHER MADE AWARE PTS IS ON HOLD 6332 AND THAT PSYCHE CONSULT WILL COME AND SEE PTS RASHI.
[2017-10-27] MEDS: ATORVASTATIN 10 MG TABLET PO SCH (22:05)
[2017-10-27] MEDS: QUETIAPINE FUMARATE 25 MG TABLET PO SCH (22:05)
[2017-10-28] VITALS: BP 157/77
[2017-10-28 04:00] VITALS: BP 167/104
[2017-10-28] MEDS: hydrALAZINE HCL IV 20 MG VIAL IV PRN (04:54)
--- NOTE | 2017-10-28 06:30 | NUR ---
RN CLOSING NOTES PT IS ASLEEP IN BED. ALL SAFETY MEASURES TAKEN, Q2 MONITORING OF SKIN AND CIRCULATION OF RESTRAIN DONE X6. SITTER AT BED SIDE, BED IN LOW LOCKED POSITION, CALL LIGHT WITH IN REACH. ALL MEDICATION GIVEN ORDERED. ALL NEEDS ATTENDED. WILL ENDORSE TO AM RN FOR ISIDRO.
--- NOTE | 2017-10-28 07:30 | NUR ---
BRENDAN RN NOTES RECEIVED PATIENT SLEEPING IN BED, AROUSABLE ABLE TO OPEN EYES, LETHARGIC AND MUMBLING, ON 4 POINT RESTRAINT, SITTER AT BEDSIDE, WILL REASSESS AND RELEASE EACH RESTRAINT ONE AT A TIME, RESTRAINT PROTOCOL FOLLOWED, NO DISTRESS NOTED, ON TELE MONITOR HR 71, ON ROOM AIR. WILL CONTINUE TO MONITOR.
[2017-10-28 08:00] VITALS: BP 119/80
--- NOTE | 2017-10-28 08:00 | NUR ---
DR. RAMOS NOTIFIED UPDATED WITH PATIENT CONDITON AND INCIDENT LAST NIGHT ,PATIENT ON FOUR POINT RESTRAINT,AWAITS PSYCHE CONSULT WITH SITTER AT BEDSIDE,PATIENT ASLEEP BUT AROUSABLE.
--- NOTE | 2017-10-28 08:15 | NUR ---
HISTOLOGIC TECHNICIAN NOTES PATIENT TAKEN OFF OF 1 POINT OUT OF FOUR POINT WILL MONITOR TO SEE HOW PATIENT REACTS.
[2017-10-28] MEDS: BLOOD SUGAR DIAGNOSTIC 1 EACH STRIP IN SCH ×4 (08:39→21:34)
--- NOTE | 2017-10-28 09:21 | NUR ---
HAS PSYCHE BED AVAILABLE PER DR. RAMOS WILL EVALUATE PT. FIRST IF MEDICALLY CLEARED.
--- NOTE | 2017-10-28 09:22 | NUR ---
RELEASED ONE LEG FROM RESTRAINT,PER MD ORDER,WILL FF. UP.VSS.
[2017-10-28 09:36] LABS: BASOPHILS % (AUTO) 0.3 % (0.0-2.0); EOSINOPHILS % (AUTO) 0.1 % (0.0-6.0); HEMATOCRIT 53 % (39-51); HEMOGLOBIN 18.5 g/dL (13.5-17.5); LYMPHOCYTES # (AUTO) 1.1 /CMM (0.8-4.8); LYMPHOCYTES % (AUTO) 14.1 % (20.0-44.0); MEAN CORPUSCULAR HGB CONC 35 g/dl (31.0-36.0); MEAN CORPUSCULAR VOLUME 89 fL (80-96); MONOCYTES # (AUTO) 0.6 /CMM (0.1-1.30); MONOCYTES % (AUTO) 7.7 % (2.0-12.0); NEUTROPHILS # (AUTO) 6.2 /CMM (1.8-8.9); NEUTROPHILS % (AUTO) 77.8 % (43.0-81.0); PLATELET COUNT (AUTO) 184 /CMM (150-450); RDW COEFFICIENT OF VARIATION 12.9 (11.5-15.0); RED BLOOD CELL COUNT(AUTO) 5.93 MIL/uL (4.5-6.0)
[2017-10-28 09:39] LABS: CALCIUM, SERUM 9.8 mg/dL (8.5-10.1); CREATININE 1.6 mg/dL (0.6-1.3); POTASSIUM 3.6 mmol/L (3.5-5.1)
--- NOTE | 2017-10-28 10:00 | NUR ---
WEIGHER AND CRUSHER NOTES PATIENT TAKEN OFF SECOND RESTRAINT ON LEG, WILL CONTINUE TO MONITOR FOR SAFETY.
[2017-10-28] MEDS: ASPIRIN EC 325 MG TABLET.DR PO SCH (10:10)
[2017-10-28] MEDS: HYDROCHLOROTHIAZIDE 25 MG TABLET PO SCH (10:11)
[2017-10-28] MEDS: METFORMIN 500 MG TABLET PO SCH ×2 (10:11→17:43)
[2017-10-28] MEDS: AMLODIPINE BESYLATE 10 MG TABLET PO SCH (10:11)
[2017-10-28] MEDS: VALSARTAN 80 MG TABLET PO SCH (10:12)
[2017-10-28] MEDS: BUPROPION XL 150 MG TAB.ER.24 PO SCH (10:12)
--- NOTE | 2017-10-28 10:45 | NUR ---
DR. LAI AT BEDSIDE,EVALUATED PT,ONE TO ONE FACE ASSESSMENT DONE,PT. CALM COOPERATIVE,PER PSYCHE RELEASE FROM RESTRAINT ONE HOUR POST NEW PSYCHE MEDS GIVEN.
[2017-10-28] MEDS ORDERED: HALOPERIDOL LACTATE INJ 5 MG/ML VIAL IM PRN (11:00)
[2017-10-28 12:00] VITALS: BP 122/88
--- NOTE | 2017-10-28 12:00 | NUR ---
FAGOT HEATER HELPER NOTES PATIENT GIVEN PSYCH MEDICATION PER DR ORDER WILL RELEASE FROM BILATERAL RESTRAINTS IN ONE HOUR.
[2017-10-28] MEDS: QUETIAPINE FUMARATE 25 MG TABLET PO SCH ×2 (12:06→17:43)
--- NOTE | 2017-10-28 13:00 | NUR ---
SUPERINTENDENT OPERATIONS DIVISION NOTES PATIENT TAKEN OFF OF RESTRAINTS AT THIS TIME, WILL CONTINUE TO MONITOR. SITTER AT BEDSIDE.
[2017-10-28 16:00] VITALS: BP 136/80
[2017-10-28] MEDS ORDERED: BENZTROPINE MESYLATE (2MG/2ML) 2 MG/2 ML AMPUL IM PRN (18:00)
--- NOTE | 2017-10-28 19:00 | NUR ---
DROP PRESS HAND END NOTES PATIENT RESTING IN BED, COOPERATIVE WITH MEDICATIONS AND SITTER, NO AGGRESSIVE BEHAVIOR NOTED. WILL ENDORSE TO MEAT SALES AND STORAGE MANAGER FOR CONTINUITY OF CARE.
--- NOTE | 2017-10-28 19:30 | NUR ---
MS RN NOTES RECEIVED ON BED A/O 1-2,WITH EPISODE OF CONFUSION.ON 5150 HOLD FOR DTS,DTO.SITTER AT BEDSIDE FOR SAFETY.WITH RFA SALINE LOCK INTACT AND PATENT.WILL CONTINUE TO MONITOR STATUS.
[2017-10-28 20:00] VITALS: BP 108/75
--- NOTE | 2017-10-28 21:30 | NUR ---
MS RN NOTES ACCU-CHECK BLOOD SUGAR CHECK 91,NO INSULIN COVERAGE.CALM AND QUIETON BED,MED COMPLIANT.
[2017-10-28] MEDS: QUETIAPINE FUMARATE 100 MG TABLET PO SCH (21:43)
[2017-10-28] MEDS: ATORVASTATIN 10 MG TABLET PO SCH (21:43)
--- NOTE | 2017-10-29 02:00 | NUR ---
MS RN NOTES SOUND ASLEEP,SITTER AT BEDSIDE FOR SAFETY.
[2017-10-29] MEDS: BLOOD SUGAR DIAGNOSTIC 1 EACH STRIP IN SCH ×4 (05:40→21:31)
[2017-10-29 05:58] VITALS: BP 109/76
--- NOTE | 2017-10-29 06:00 | NUR ---
MS RN NOTES ACCU-CHECK BLOOD SUGAR CHECK 93,NO INSULIN COVERAGE
--- NOTE | 2017-10-29 06:31 | NUR ---
MS RN NOTES CALM AND QUIET THRU OUT SHIFT.SEROQUEL 100MG PO EFFECTIVE.COMPLIANT WITH CARE.SITTER AT BEDSIDE FOR SAFETY.D/C PLAN TO PSCHIATRIC UNIT IF TREATMENT PLAN NOT EFFECTIVE PER DR LAI VS D/C HOME WHEN STABLE.WILL ENDORSE TO DAY NURSE FOR ISIDRO.
[2017-10-29 08:00] VITALS: BP 128/84
[2017-10-29] MEDS: VALSARTAN 80 MG TABLET PO SCH (09:12)
[2017-10-29] MEDS: ASPIRIN EC 325 MG TABLET.DR PO SCH (09:12)
[2017-10-29] MEDS: METFORMIN 500 MG TABLET PO SCH ×2 (09:12→17:22)
[2017-10-29] MEDS: HYDROCHLOROTHIAZIDE 25 MG TABLET PO SCH (09:13)
[2017-10-29] MEDS: QUETIAPINE FUMARATE 25 MG TABLET PO SCH ×3 (09:13→17:21)
[2017-10-29] MEDS: AMLODIPINE BESYLATE 10 MG TABLET PO SCH (09:13)
[2017-10-29 11:45] LABS: BASOPHILS # (AUTO) 0.2 /CMM (0.0-0.2); BASOPHILS % (AUTO) 2.7 % (0.0-2.0); EOSINOPHILS % (AUTO) 1.1 % (0.0-6.0); HEMATOCRIT 51 % (39-51); HEMOGLOBIN 17.9 g/dL (13.5-17.5); LYMPHOCYTES # (AUTO) 1.9 /CMM (0.8-4.8); LYMPHOCYTES % (AUTO) 28.8 % (20.0-44.0); MEAN CORPUSCULAR HGB CONC 35 g/dl (31.0-36.0); MEAN CORPUSCULAR VOLUME 89 fL (80-96); MONOCYTES # (AUTO) 0.5 /CMM (0.1-1.30); MONOCYTES % (AUTO) 8.1 % (2.0-12.0); NEUTROPHILS # (AUTO) 3.8 /CMM (1.8-8.9); NEUTROPHILS % (AUTO) 59.3 % (43.0-81.0); PLATELET COUNT (AUTO) 214 /CMM (150-450); RED BLOOD CELL COUNT(AUTO) 5.77 MIL/uL (4.5-6.0); WHITE BLOOD COUNT (AUTO) 6.5 K/uL (4.3-11.0)
[2017-10-29 11:58] LABS: CALCIUM, SERUM 9.4 mg/dL (8.5-10.1); CREATININE 1.5 mg/dL (0.6-1.3); POTASSIUM 3.2 mmol/L (3.5-5.1)
[2017-10-29 16:00] VITALS: BP 110/69
--- NOTE | 2017-10-29 19:25 | NUR ---
RN OPEN NOTES RECEIVED PATIENT AWAKE IN BED WITH SITTER AT BEDSIDE. A/O X2-3. NO SIGNS OF DISTRESS OR DISCOMFORT. BREATHING EVEN AND UNLABORED. IV ACCESS IN RFA, PATENT AND INTACT, NO SIGNS OF REDNESS OR INFILTRATION. BED IN LOW LOCKED POSITION WITH SIDE RAILS X3. CALL LIGHT WITHIN REACH. WILL CONTINUE TO MONITOR.
[2017-10-29 20:00] VITALS: BP 94/69
[2017-10-29] MEDS: ATORVASTATIN 10 MG TABLET PO SCH (21:31)
[2017-10-29] MEDS: QUETIAPINE FUMARATE 100 MG TABLET PO SCH (21:31)
[2017-10-30] VITALS (23 sets, daily range): BP systolic 67–146; BP diastolic 43–126
[2017-10-30] MEDS: BLOOD SUGAR DIAGNOSTIC 1 EACH STRIP IN SCH ×4 (06:34→20:25)
--- NOTE | 2017-10-30 07:25 | NUR ---
RN OPEN NOTES RECEIVED REPORT FROM ELECTRONIC PREPRESS TECHNICIAN NURSE. PATIENT IS IN BED, ALERT AND AWAKE TO SELF AND PLACE ONLY. 1:1 SITTER AT BEDSIDE. NPO FOR KYREE PROCEDURE. NO SIGNS AND SYMPTOMS OF DISTRESS. BILATERALLY TANJA AND UNLABORED BREATHING. BED IN LOW POSITION, LOCKED AND TWO SIDE RAILS ARE UP. CALL LIGHT WITHIN REACH FOR SAFETY. WILL CONTINUE TO ASSESS AND MONITOR PATIENT
[2017-10-30] MEDS: ASPIRIN EC 325 MG TABLET.DR PO SCH (07:39)
[2017-10-30] MEDS: METFORMIN 500 MG TABLET PO SCH ×2 (07:39→16:30)
[2017-10-30] MEDS: QUETIAPINE FUMARATE 25 MG TABLET PO SCH ×4 (07:39→16:30)
[2017-10-30] MEDS: VALSARTAN 80 MG TABLET PO SCH (07:39)
[2017-10-30] MEDS: AMLODIPINE BESYLATE 10 MG TABLET PO SCH (07:39)
[2017-10-30] MEDS: HYDROCHLOROTHIAZIDE 25 MG TABLET PO SCH (07:39)
--- NOTE | 2017-10-30 07:39 | NUR ---
RN CLOSING NOTES PATIENT RESTING IN BED WITH SITTER AT BEDSIDE. A/O X2-3. NO SIGNS OF DISTRESS OR DISCOMFORT. BREATHING EVEN AND UNLABORED. IV ACCESS IN RFA, PATENT AND INTACT, NO SIGNS OF REDNESS OR INFILTRATION. ALL NEEDS MET. NO SIGNIFICANT CHANGES THROUGH THE NIGHT. BED IN LOW LOCKED POSITION WITH SIDE RAILS X3. CALL LIGHT WITHIN REACH. ENDORSED TO AM SHIFT FOR ISIDRO.
[2017-10-30 08:04] LABS: BASOPHILS # (AUTO) 0.1 /CMM (0.0-0.2); BASOPHILS % (AUTO) 1.8 % (0.0-2.0); EOSINOPHILS % (AUTO) 1.2 % (0.0-6.0); HEMATOCRIT 53 % (39-51); HEMOGLOBIN 18.2 g/dL (13.5-17.5); LYMPHOCYTES % (AUTO) 38.9 % (20.0-44.0); MEAN CORPUSCULAR HGB CONC 35 g/dl (31.0-36.0); MEAN CORPUSCULAR VOLUME 90 fL (80-96); MONOCYTES # (AUTO) 0.4 /CMM (0.1-1.30); MONOCYTES % (AUTO) 7.2 % (2.0-12.0); NEUTROPHILS # (AUTO) 2.6 /CMM (1.8-8.9); NEUTROPHILS % (AUTO) 50.9 % (43.0-81.0); PLATELET COUNT (AUTO) 200 /CMM (150-450); RDW COEFFICIENT OF VARIATION 13.5 (11.5-15.0); RED BLOOD CELL COUNT(AUTO) 5.85 MIL/uL (4.5-6.0); WHITE BLOOD COUNT (AUTO) 5.2 K/uL (4.3-11.0)
[2017-10-30 08:19] LABS: CALCIUM, SERUM 9.6 mg/dL (8.5-10.1); CREATININE 1.6 mg/dL (0.6-1.3); POTASSIUM 3.5 mmol/L (3.5-5.1)
--- NOTE | 2017-10-30 10:20 | NUR ---
PATIENT TRANSFERRED TO ICU BED 251 FOR KYREE PROCEDURE
[2017-10-30 12:04] LABS: LYMPHOCYTES % (MANUAL) 38 % (16-48); MONOCYTES % (MANUAL) 4 % (0-11.0); NEUTROPHILS % (MANUAL) 58 (42-76)
--- NOTE | 2017-10-30 13:39 | NUR ---
ONCOLOGY COORDINATOR - POST TTE NOTE PATIENT NOTED TO BE AWAKE AND ALERT. ABLE TO FOLLOW COMMANDS. BS 73. STABLE VITAL SINGS. NORMAL BP. CLARIFIED WITH PRIMARY MD ABOUT CONTINUING DIET AND TRANSFER BACK TO MED SURG.
--- NOTE | 2017-10-30 13:59 | NUR ---
PATIENT ARRIVED TO THE UNIT AND PLACED IN [facility]-1
[2017-10-30] MEDS: HYDROCODONE/APAP 5/325MG 1 EACH TABLET PO PRN (16:31)
--- NOTE | 2017-10-30 18:29 | NUR ---
RN CLOSING NOTES PATIENT IS IN BED, AWAKE AND ALERT TO SELF, PLACE AND TIME. PERIOD OF CONFUSION NOTED. 1:1 SITTER AT BEDSIDE, PATIENT IS ON 5250 HOLD. NO SIGNS AND SYMPTOMS OF DISTRESS OR PAIN. IV SITES ARE INTACT AND PATENT, HL ONLY. ALL PATIENT NEEDS ANTICIPATED AND ATTENDED FOR. PATIENT KEPT CLEAN AND DRY. BED IN LOW POSITION, LOCKED AND TWO SIDE RAILS ARE UP, CALL LIGHT WITHIN REACH FOR SAFETY. WILL ENDORSE TO SECOND TIME WORKER NURSE FOR ISIDRO.
--- NOTE | 2017-10-30 20:26 | NUR ---
BLOOD SUGAR 97 REASON DONE AERLY PATIENT [place] AND WANTED A SNACK
[2017-10-30] MEDS: ATORVASTATIN 10 MG TABLET PO SCH (21:45)
[2017-10-30] MEDS: QUETIAPINE FUMARATE 100 MG TABLET PO SCH (21:45)
--- NOTE | 2017-10-31 07:00 | NUR ---
RN NOTES RECEIVED PT ON BED, A/Ox2-3, RESPIRATION EVEN AND UNLABORED, ON RA , NO SOB NOTED, RESTING , RFA AND L FA IV SITES CDI, NO REDNESS NOTED AT THE SITES, SITTER AT THE BEDSIDE FOR SAFETY PRECAUTION , SR UP x3, CALL LIGHTS WITHIN EASY REACH, BED LOCKED AND IN LOWEST POSITION, CONTINUE TO MONITOR.
[2017-10-31 07:33] LABS: BASOPHILS % (AUTO) 0.8 % (0.0-2.0); EOSINOPHILS % (AUTO) 1.9 % (0.0-6.0); HEMATOCRIT 50 % (39-51); HEMOGLOBIN 17.6 g/dL (13.5-17.5); LYMPHOCYTES % (AUTO) 33.6 % (20.0-44.0); MEAN CORPUSCULAR HGB CONC 35 g/dl (31.0-36.0); MEAN CORPUSCULAR VOLUME 89 fL (80-96); MONOCYTES # (AUTO) 0.4 /CMM (0.1-1.30); MONOCYTES % (AUTO) 6.4 % (2.0-12.0); NEUTROPHILS # (AUTO) 3.5 /CMM (1.8-8.9); NEUTROPHILS % (AUTO) 57.3 % (43.0-81.0); PLATELET COUNT (AUTO) 216 /CMM (150-450); RED BLOOD CELL COUNT(AUTO) 5.66 MIL/uL (4.5-6.0); WHITE BLOOD COUNT (AUTO) 6.1 K/uL (4.3-11.0)
[2017-10-31 07:44] LABS: CALCIUM, SERUM 9.1 mg/dL (8.5-10.1); CREATININE 1.2 mg/dL (0.6-1.3); POTASSIUM 3.6 mmol/L (3.5-5.1)
[2017-10-31 08:00] VITALS: BP 140/82
[2017-10-31] MEDS: METFORMIN 500 MG TABLET PO SCH ×2 (08:23→16:23)
[2017-10-31] MEDS: ASPIRIN EC 325 MG TABLET.DR PO SCH (08:23)
[2017-10-31] MEDS: AMLODIPINE BESYLATE 10 MG TABLET PO SCH (08:24)
[2017-10-31] MEDS: VALSARTAN 80 MG TABLET PO SCH (08:24)
[2017-10-31] MEDS: QUETIAPINE FUMARATE 25 MG TABLET PO SCH ×3 (08:25→16:23)
[2017-10-31] MEDS: BLOOD SUGAR DIAGNOSTIC 1 EACH STRIP IN SCH ×4 (08:25→21:40)
[2017-10-31] MEDS: HYDROCHLOROTHIAZIDE 25 MG TABLET PO SCH (08:25)
[2017-10-31] MEDS ORDERED: QUET25TA PO (13:31)
[2017-10-31] MEDS ORDERED: QUET100T PO (13:31)
--- NOTE | 2017-10-31 14:00 | NUR ---
RN NOTES PT HAS UNSTEADY GAIT, UNABLE TO WALK WITH WALKER , HIGH RISK FOR FALL, CASE MANAGEMENT NOTIFIED, UNABLE TO GO HOME AT THIS TIME, PT'S BROTHER NOTIFIED .
--- NOTE | 2017-10-31 15:34 | NUR ---
CM AWARE ABOUT SAFETY ,DR. SORENSON NOTIFIED.
[2017-10-31 16:00] VITALS: BP 103/72
--- NOTE | 2017-10-31 18:10 | NUR ---
RN NOTES PT STABLE , SITTER AT THE BEDSIDE , RESPIRATION EVEN AND UNLBORED, SR UP x3, CALL LIGHTS WITHIN EASY REACH, WILL ENDORSE TO BEHAVIORAL HEALTH RN NURSE FOR ISIDRO.
--- NOTE | 2017-10-31 19:48 | NUR ---
RN OPENING NOTES RECEIVED REPORT FROM HANSA RN. FOUND Pt AWAKE, RESTING IN BED. NO S/S OF ACUTE DISTRESS OR SOB NOTED. SITTER AT BEDSIDE. Pt IS A/OX3. IV ACCESS ON RFA #20G, SL & LFA #20G, SL. SAFETY MEASURES IN PLACE. BED LOW, LOCKED, HOB ELEVATED, SIDE RAILS UP, CALL LIGHT & BEDSIDE TABLE WITHIN REACH. WILL CONTINUE TO MONITOR Pt THROUGHOUT THE NIGHT FOR SAFETY.
[2017-10-31 20:00] VITALS: BP 122/81
[2017-10-31] MEDS: IV NS 0.9% 1,000 ML BAG IV PRN (20:59)
[2017-10-31] MEDS: QUETIAPINE FUMARATE 100 MG TABLET PO SCH (21:40)
[2017-10-31] MEDS: ATORVASTATIN 10 MG TABLET PO SCH (21:40)
[2017-10-31] MEDS: HYDROCODONE/APAP 5/325MG 1 EACH TABLET PO PRN (21:40)
--- NOTE | 2017-10-31 21:56 | NUR ---
RN NOTES HS BG 75. NO INSULIN COVERAGE NEEDED AT THIS TIME.
--- NOTE | 2017-11-01 06:50 | NUR ---
RN CLOSING NOTES NO SIGNIFICANT CHANGES IN Pt's CONDITION. Pt REMAINS STABLE AT THIS TIME. NO S/S OF ACUTE DISTRESS OR SOB NOTED DURING THE NIGHT. ALL NEEDS MET AND ATTENDED TO. SAFETY MEASURES IN PLACE. WILL ENDORSE TO DAYSHIFT RN FOR Pt's ISIDRO.
--- NOTE | 2017-11-01 07:40 | NUR ---
RN OPENING NOTES RECEIVED PT. A/OX3. PT STABLE AND RESTING IN BED. NO S/S OF RESP DISTRESS OR SOB. NO C/O PAIN AT THIS TIME. D/C ON HOLD PENDING PT EVAL IN AM ON 11/01/17. IV ACCESS LOCATED ON LEFT FOREARM 20G INFUSING NS AT 70 ML/HR. SAFETY MEASURES IN PLACE, CALL LIGHT WITHIN REACH. WILL CONTINUE TO MONITOR.
[2017-11-01 08:00] VITALS: BP 150/87
[2017-11-01] MEDS: AMLODIPINE BESYLATE 10 MG TABLET PO SCH (08:31)
[2017-11-01] MEDS: HYDROCHLOROTHIAZIDE 25 MG TABLET PO SCH (08:31)
[2017-11-01] MEDS: ASPIRIN EC 325 MG TABLET.DR PO SCH (08:31)
[2017-11-01] MEDS: VALSARTAN 80 MG TABLET PO SCH (08:31)
[2017-11-01] MEDS: QUETIAPINE FUMARATE 25 MG TABLET PO SCH ×2 (08:31→12:13)
[2017-11-01] MEDS: METFORMIN 500 MG TABLET PO SCH (08:40)
[2017-11-01] MEDS: BLOOD SUGAR DIAGNOSTIC 1 EACH STRIP IN SCH ×2 (08:41→12:00)
--- NOTE | 2017-11-01 08:45 | NUR ---
RN NOTES AM METFORMIN HELD DUE TO BS OF 61 & PTS REFUSAL FOR BREAKFAST. WILL CONTINUE TO MONITOR.
[2017-11-01 12:00] VITALS: BP 150/87
[2017-11-01] MEDS: IV NS 0.9% 1,000 ML BAG IV PRN (12:14)
[2017-11-01 12:44] LABS: IRON, SERUM 112 ug/dl (50-175); TOTAL IRON BINDING CAPACITY 280 ug/dl (250-450)
[2017-11-01 12:53] LABS: FERRITIN 321 ng/mL (8-388)
--- NOTE | 2017-11-01 15:45 | NUR ---
PATIENT AWAKE ,ALERT, WANTED TO GO HOME ,ABLE TO AMBULTE W/ WALKER,BROTHER NOTIFIED ABOUT DISCHARGE,PER CM SHARON PT. DOESNT QUALIFIED FOR SNF ,EXPLAINED TO PT,INSITED TI GO HOME.PER CM WILL SEND BY [facility].
--- NOTE | 2017-11-01 16:06 | NUR ---
DISCHARGE NOTE PT DISCHARGED HOME. PER MD NOTES, RECOMMENDED PLACEMENT IN ACUTE REHAB. PT REFUSED STAY IN ARU, CHOOSING TO INSTEAD GO HOME. BENEFITS AND RISKS EXPLAINED TO PT, HOWEVER PT INSISTS ON D/C HOME. ALL DISCHARGE INSTRUCTIONS EXPLAINED TO PT, PT VERBALIZES UNDERSTANDING. DISCHARGE INSTRUCTIONS AND BELONGINGS SHEET SIGNED, COPIED AND PLACED IN CHART. PT REFUSED F/U PICTURES OF SKIN. IV ACCESS REMOVED. ID BAND REMOVED. PT LEFT HOSPITAL IN [place] WITH SOCIAL WORK PROFESSOR.
== END 2017-11-01 16:00 | disposition home or self-care (01) | DRG 45 ==
LOC: ER 10:52 → TELE-TD 14:13 → TELE1 14:16 → MEDSG1 10-28 14:11 → ICU 10-30 10:10 → MEDSG1 10-30 13:54
PROVIDERS: ADMIT Family Medicine; ATTEND Family Medicine
PROC: B246ZZ4 Ultrasonography of Right and Left Heart, Transesophageal (ICD-10-PCS; principal; 2017-10-30)
DX: I63.59 Cerebral infarction due to unspecified occlusion or stenosis of other cerebral artery (principal); G93.41 Metabolic encephalopathy; D68.59 Other primary thrombophilia; D75.1 Secondary polycythemia; I11.9 Hypertensive heart disease without heart failure; I10 Essential (primary) hypertension; I63.443 Cerebral infarction due to embolism of bilateral cerebellar arteries; F20.9 Schizophrenia, unspecified; F14.10 Cocaine abuse, uncomplicated; I16.1 Hypertensive emergency; E11.9 Type 2 diabetes mellitus without complications; E87.6 Hypokalemia; R53.1 Weakness; E78.5 Hyperlipidemia, unspecified; I25.10 Atherosclerotic heart disease of native coronary artery without angina pectoris; Z88.0 Allergy status to penicillin; Z79.82 Long term (current) use of aspirin; Z79.899 Other long term (current) drug therapy; Z72.0 Tobacco use; R29.6 Repeated falls; W19.XXXA Unspecified fall, initial encounter; Y92.9 Unspecified place or not applicable; Z83.3 Family history of diabetes mellitus; Z86.73 Personal history of transient ischemic attack (TIA), and cerebral infarction without residual deficits; Z98.890 Other specified postprocedural states; Z80.9 Family history of malignant neoplasm, unspecified; Z82.49 Family history of ischemic heart disease and other diseases of the circulatory system; F29 Unspecified psychosis not due to a substance or known physiological condition; Z59.0 Homelessness
CPT/HCPCS: 36415; 70450-TC; 70544-TC; 70551-TC; 71045-TC; 72125-TC; 76700-TC; 80048-TC; 80061-TC; 80076-TC; 80305; 81000-TC; 82140-TC; 82728-TC; 82962-TC; 83540-TC; 83735-TC; 83891; 83900; 83909; 83912; 84100-TC; 84443-TC; 84484-TC; 85025-TC; 85730-TC; 87081-TC; 93307-TC; 93312-TC; 97116-TC; 97530-TC; A4606; G0480; J0360; J0515; J1630; J2060; J2370; J2704; J3490; J7030; Z7610

== ENCOUNTER 2018-05-05 15:41 | Inpatient (IN) | payer BC ==
[~2018-05-05] VITALS: Ht 180.3 cm; Wt 64.4 kg
[~2018-05-05 15:41] MED LIST changes: +AMLO10TA2 PO; -AMLO10TA6 PO; +QUET100T PO
--- NOTE | 2018-05-05 15:41 | NUR ---
PT JAMES FROM HOME TO ER BED 02. FRIEND WAS WITH PATIENT WHEN HE STARTED NOTICING HIM HAVING POSSIBLE SEIZURE LIKE ACTIVITY FOR 2 MINS. GOWNED AND PLACED ON MONITOR. VSS. AWAITING MD HARTLEY.
--- NOTE | 2018-05-05 15:43 | NUR ---
PT PLACED ON SEIZURE PRECAUTION. FRIEND AT BEDSIDE.
--- NOTE | 2018-05-05 16:09 | NUR ---
DR HAIDER AT BEDSIDE FOR EVAL.
--- NOTE | 2018-05-05 16:17 | NUR ---
PT TO RADIOLOGY FOR HEAD CT SCAN VIA [facility].
[2018-05-05] MEDS ORDERED: IV NS 0.9% 500 ML BAG IV ONE (16:30)
--- NOTE | 2018-05-05 16:32 | NUR ---
ACCBONGECK 74. DR HAIDER AWARE
[2018-05-05 16:49] LABS: BASOPHILS % (AUTO) 0.4 % (0.0-2.0); EOSINOPHILS % (AUTO) 1.2 % (0.0-6.0); HEMATOCRIT 43 % (39-51); HEMOGLOBIN 14.1 g/dL (13.5-17.5); LYMPHOCYTES # (AUTO) 1.2 /CMM (0.8-4.8); LYMPHOCYTES % (AUTO) 26.8 % (20.0-44.0); MEAN CORPUSCULAR HEMOGLOBIN 28 PG (26.0-33.0); MEAN CORPUSCULAR HGB CONC 33 g/dl (31.0-36.0); MEAN CORPUSCULAR VOLUME 86 fL (80-96); MONOCYTES # (AUTO) 0.3 /CMM (0.1-1.30); MONOCYTES % (AUTO) 7.3 % (2.0-12.0); NEUTROPHILS # (AUTO) 2.8 /CMM (1.8-8.9); NEUTROPHILS % (AUTO) 64.3 % (43.0-81.0); PLATELET COUNT (AUTO) 233 /CMM (150-450); RDW COEFFICIENT OF VARIATION 14.1 (11.5-15.0); RED BLOOD CELL COUNT(AUTO) 5.01 MIL/uL (4.5-6.0); WHITE BLOOD COUNT (AUTO) 4.4 K/uL (4.3-11.0)
[2018-05-05] MEDS ORDERED: LORAZEPAM INJ 2 MG/ML VIAL IV ONE (17:00)
[2018-05-05] MEDS ORDERED: LORAZEPAM INJ 2 MG/ML VIAL ONE (17:00)
[2018-05-05] MEDS ORDERED: LEVETIRACETAM (500MG) 1,000 MG in IV NS 0.9% 100 ML IV SCH (17:00)
--- NOTE | 2018-05-05 17:00 | NUR ---
PT ACTIVELY HAVING SEIZURE. DR HAIDER AT BEDSIDE. ATIVAN 2MG IVP GIVEN PER ERMD VERBAL ORDER.
[2018-05-05 17:04] LABS: INR 1.02 (0.85-1.15)
[2018-05-05 17:06] LABS: ALANINE AMINOTRANSFERASE 20 U/L (12-78); ALBUMIN 3.5 g/dL (3.4-5.0); ALCOHOL, BLOOD < 3 mg/dL (0-0); ALKALINE PHOSPHATASE 189 U/L (46-116); ASPARTATE AMINOTRANSFERASE 15 U/L (15-37); BILIRUBIN,DIRECT 0.1 mg/dL (0.0-0.2); BILIRUBIN,TOTAL 0.5 mg/dL (0.2-1.0); CARBON DIOXIDE 26 mmol/L (21-32); CHLORIDE 106 mmol/L (98-107); CREATININE 1.5 mg/dL (0.6-1.3); GLUCOSE 82 mg/dL (74-106); POTASSIUM 3.4 mmol/L (3.5-5.1); SODIUM SERUM 140 mmol/L (136-145); TOTAL PROTEIN, SERUM 7.3 g/dL (6.4-8.2); UREA NITROGEN, BLOOD 14 mg/dL (7-18)
--- NOTE | 2018-05-05 17:07 | NUR ---
FRIEND/ROOM MATE LEFT CONTACT # [phone]
[2018-05-05 17:08] LABS: TROPONIN I 0.028 ng/mL (0.00-0.056)
[2018-05-05 17:10] LABS: CALCIUM, SERUM 9.7 mg/dL (8.5-10.1)
[2018-05-05] MEDS ORDERED: METO-357 PO (17:12)
--- NOTE | 2018-05-05 17:32 | NUR ---
PREFFERED IPA PROVIDED AUTHORIZATION NUMBER TO ADMIT PATIENT IS UNSTABLE FOR TRANSFER PER DR. HAIDER - AUTH. NUMBER [id number]
--- NOTE | 2018-05-05 17:33 | NUR ---
PAGED EPIC FOR PANEL - EDUCATIONAL DIAGNOSTICIAN DR. STEELE
--- NOTE | 2018-05-05 17:38 | NUR ---
CALLED NURSE SUP FOR TELE BED
--- NOTE | 2018-05-05 18:01 | NUR ---
PAGED EPIC FOR PANEL AGAIN FOR SECOND TIME - ANALYTICAL SCIENCES DIRECTOR DR STEELE
[2018-05-05] MEDS ORDERED: QUET300T2 PO (18:20)
[2018-05-05] MEDS ORDERED: ARIP10TA9 PO (18:20)
[2018-05-05] MEDS ORDERED: MIRT15TA7 PO (18:20)
--- NOTE | 2018-05-05 18:22 | NUR ---
CALLED NURSE SUP AGAIN FOR TELE BED
--- NOTE | 2018-05-05 18:51 | NUR ---
REPORT GIVEN TO SUGEY ANTON. PT AWAITING TRANSFER TO FLOOR.
--- NOTE | 2018-05-05 19:17 | NUR ---
REPORT RECEIVED FROM SLOANE ORTIZ FOR ISIDRO.
--- NOTE | 2018-05-05 19:31 | NUR ---
PT TRANSPORTED TO TELE VIA STRETCHER ON ROUTING CLERK WITH RN PER ACLS PROTOCOL. VSS.
[2018-05-05 20:00] VITALS: BP_SYST 168; BP_DIAS 105; BP_DIAS 99
[2018-05-05] MEDS ORDERED: IV NS 0.9% 1,000 ML IV PRN (20:01)
[2018-05-05] MEDS ORDERED: ACETAMINOPHEN 325 MG TABLET PO PRN (20:30)
[2018-05-05] MEDS ORDERED: ONDANSETRON HCL/PF 4 MG/2 ML VIAL IVP PRN (20:30)
[2018-05-05] MEDS ORDERED: MAGNESIUM HYDROXIDE 30 ML UDC PO PRN (20:30)
[2018-05-05] MEDS ORDERED: ZOLPIDEM TARTRATE 5 MG TABLET PO PRN (20:30)
[2018-05-05] MEDS ORDERED: Z GUARD REMEDY 2 OZ OINT TP PRN (20:30)
[2018-05-05] MEDS ORDERED: LORAZEPAM INJ 2 MG/ML VIAL IV PRN (20:30)
[2018-05-05] MEDS ORDERED: MAG HYDROX/AL HYDROX/SIMETH 30 ML UDC PO PRN (20:30)
--- NOTE | 2018-05-05 21:00 | NUR ---
TELE NOTES RECHECK BP PAGED KAIA FOR PT HIGH BLOOD PRESSURE 160/89
--- NOTE | 2018-05-05 21:00 | NUR ---
EMPLOYEE RELATION MANAGER OPENING NOTES RECEIVE PT FROM [employer] AT [facility] VIA [place] PT A/O 1-2, RESPIRATIONS EVEN AND UNLABORED, ADMIT TO TELE HEAD TO TOE ASSESSMENT IS DONE SKIN IS INTACT, KEPT CLEAN AND COMFORTABLE, NEEDS ATTENDED. SAFETY MEASURES IN PLACE. SEIZURE PRECAUTIONS IMPLEMENTED. WILL MONITOR PT.
[2018-05-05] MEDS: QUETIAPINE FUMARATE 100 MG TABLET PO SCH (21:23)
--- NOTE | 2018-05-05 21:30 | NUR ---
SPOKE TO HOSPITALIST MS. MARTI CONTROL SYSTEMS TECHNICIAN RELAYED LATEST BP ORDERED CLONIDINE 0.1 MG PO Q6 PRN SBP >160 READ BACK AND VERIFIED NOTED AND CARRIED OUT.
[2018-05-05] MEDS ORDERED: CLONIDINE HCL 0.1 MG TABLET PO PRN (22:00)
[2018-05-05] MEDS ORDERED: ENOXAPARIN SODIUM 40 MG/0.4 ML DISP.SYRIN SQ SCH (22:00)
[2018-05-05 22:20] VITALS: BP 158/105
[2018-05-05 23:30] VITALS: BP 170/100
--- NOTE | 2018-05-05 23:35 | NUR ---
PAGED HOSPITALIST SPOKE TO DOCK SUPERINTENDENT RELAYED LATEST BP ORDERED HYDRALAZINE 10 MG IVP Q6HR PRN SBP >160 DISCONTINUE CLONIDINE PREVIOUS ORDER READ BACK AND VERIFIED ORDERS NOTED AND CARRIED OUT
[2018-05-05] MEDS: hydrALAZINE HCL IV 20 MG VIAL IV PRN (23:54)
[2018-05-06] VITALS (10 sets, daily range): BP systolic 132–181; BP diastolic 81–113
[2018-05-06] MEDS ORDERED: LEVETIRACETAM (500MG) 500 MG/5 ML VIAL IV ONE (01:51)
--- NOTE | 2018-05-06 04:01 | NUR ---
PASSENGER CAR INSPECTOR NOTES PAGED HOSPITALIST SPOKE TO MS. MARTI FOWL BLOOD TESTER RELAYED RECENT BP 181/110 PT ALSO NOTED WITH AGITATION REMOVING IV TUBES AND KEEP ON GETTING OUT OF BED 'PER PT WANTS TO WORK" PER MS MARTI ORDER AND GIVE ATIVAN 1 MG IVP X1 NOW ONE TIME AND SOFT WRIST RESTRAINT BILATERAL READ BACK AND VERIFIED ORDERS NOTED AND CARRIED OUT Addendum: 05/06/18 at 0644 by JOSH GODWIN RN CHERELLE MARTI NO NEED EXTRA BP MED JUST ATIVAN FOR NOW
[2018-05-06] MEDS ORDERED: LORAZEPAM INJ 2 MG/ML VIAL IV STA (04:12)
[2018-05-06] MEDS ORDERED: LEVETIRACETAM (500MG) 500 MG in IV NS 0.9% 100 ML IV SCH (06:00)
[2018-05-06] MEDS: hydrALAZINE HCL IV 20 MG VIAL IV PRN ×3 (06:02→16:55)
--- NOTE | 2018-05-06 06:44 | NUR ---
MS RN CLOSING NOTES PT COMFORTABLY ASLEEP AND EASILY AWAKEN, SEIZURE PRECAUTION. STABLE CONDITION. BP STABLE, RESPIRATION EVEN AND UNLABORED. KEPT CLEAN AND DRY AND COMFORTABLE, ALL NURSING CARE RENDERED. NEEDS ATTENDED AND ANTICIPATED, NO SEIZURE ACTIVITY AT THIS TIME, NOT IN DISTRESS, SOFT WRIST RESTRAINT BILATERAL ON WITH GOOD CIRCULATION. NO FACIAL GRIMACING NOTED. ASSISTED REPOSITION EVERY 2 HOURS. ON LOW BED AT ALL TIMES TO ENSURE SAFETY. SAFE HAZARD FREE ENVIRONMENT PROVIDED. CALL LIGHT WITHIN EASY TO REACH. WILL ENDORSE NEXT SHIFT CONTINUITY OF CARE.
--- NOTE | 2018-05-06 08:00 | NUR ---
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
[2018-05-06] MEDS: METOPROLOL SUCCINATE 50 MG TAB.SR.24H PO SCH (08:14)
[2018-05-06] MEDS: ARIPIPRAZOLE 5 MG TABLET PO SCH (08:15)
[2018-05-06 08:29] LABS: BASOPHILS # (AUTO) 0.1 /CMM (0.0-0.2); BASOPHILS % (AUTO) 0.8 % (0.0-2.0); EOSINOPHILS % (AUTO) 0.2 % (0.0-6.0); HEMATOCRIT 45 % (39-51); LYMPHOCYTES # (AUTO) 1.6 /CMM (0.8-4.8); LYMPHOCYTES % (AUTO) 16.2 % (20.0-44.0); MEAN CORPUSCULAR HEMOGLOBIN 29 PG (26.0-33.0); MEAN CORPUSCULAR HGB CONC 33 g/dl (31.0-36.0); MEAN CORPUSCULAR VOLUME 88 fL (80-96); MONOCYTES # (AUTO) 0.4 /CMM (0.1-1.30); MONOCYTES % (AUTO) 4.3 % (2.0-12.0); NEUTROPHILS # (AUTO) 7.5 /CMM (1.8-8.9); NEUTROPHILS % (AUTO) 78.5 % (43.0-81.0); PLATELET COUNT (AUTO) 293 /CMM (150-450); RDW COEFFICIENT OF VARIATION 14.9 (11.5-15.0); RED BLOOD CELL COUNT(AUTO) 5.18 MIL/uL (4.5-6.0); WHITE BLOOD COUNT (AUTO) 9.6 K/uL (4.3-11.0)
[2018-05-06 08:48] LABS: CALCIUM, SERUM 9.1 mg/dL (8.5-10.1); CREATININE 1.1 mg/dL (0.6-1.3); PHOSPHORUS 1.9 mg/dL (2.5-4.9); POTASSIUM 3.3 mmol/L (3.5-5.1)
[2018-05-06] MEDS ORDERED: BUPROPION XL 150 MG TAB.ER.24 PO SCH (09:00)
[2018-05-06] MEDS: HYDROCODONE/APAP 5/325MG 1 EACH TABLET PO PRN (10:18)
--- NOTE | 2018-05-06 11:50 | NUR ---
patient on tele monitoring after hydralazine administration. HR 93 on monitor no neuro changes .
--- NOTE | 2018-05-06 12:21 | NUR ---
Patient remains at sinus rhythm on tele box, 99 HR
[2018-05-06] MEDS: NICOTINE PATCH (21MG) 21 MG PATCH.TD24 TD SCH (12:50)
[2018-05-06] MEDS: LISINOPRIL (10MG) 10 MG TABLET PO SCH (12:50)
--- NOTE | 2018-05-06 13:00 | NUR ---
DR STEELE NOTIFIED THAT PATIENT REMAINING RISK AT INJURING HIMSELF AND REMOVING TUBES. RENEWAL PER HER ORDERS
[2018-05-06] MEDS ORDERED: K PHOS NEUTRAL 250 MG TABLET PO ONE (15:30)
[2018-05-06] MEDS: CLONIDINE HCL 0.1 MG TABLET PO PRN (16:07)
--- NOTE | 2018-05-06 16:59 | NUR ---
patient on tele monitoring after hydralazine administration. HR 87 SR
--- NOTE | 2018-05-06 17:43 | NUR ---
PATIENT REMAINED SR 93 ON TELE MONITOR
[2018-05-06] MEDS: MIRTAZAPINE 15 MG TABLET PO SCH (17:51)
--- NOTE | 2018-05-06 18:30 | NUR ---
BLADDERSCANNER: BLADDER SCANNER DONE TO ASSESS FOR URINARY RETENTION. PATIENT RETAINING 700 ML DESPITE URINATING THROUGHOUT SHIFT. PATIENT ENCOURAGED TO VOID . PATIENT STATING "NO I DONT WANT TO NOW." BENEFITS AND RISKS EXPLAINED TO PATIENT NOTIFIED MD OF AMOUNT OF RETENTION STRAIGHT CATHETER PER ORDER DONE AND OUTPUT OF 700 NOTED WILL CONTINUE TO MONITOR PATIENT FOR RETENTION
--- NOTE | 2018-05-06 18:30 | NUR ---
BLADDERSCANNER: BLADDER SCANNER DONE TO ASSESS FOR URINARY RETENTION. PATIENT RETAINING 700 ML DESPITE URINATING THROUGHOUT SHIFT. PATIENT ENCOURAGED TO VOID . PATIENT STATING "NO I DONT WANT TO NOW." BENEFITS AND RISKS EXPLAINED TO PATIENT NOTIFIED MD OF AMOUNT OF RETENTION STRAIGHT CATHETER DONE AND OUTPUT OF 700 NOTED WILL CONTINUE TO MONITOR PATIENT FOR RETENTION
--- NOTE | 2018-05-06 18:45 | NUR ---
RECEIVED AN ORDER FROM DR STEELE TO INSERT A ATWOOD CATHETER. VERBAL READBACK DONE
--- NOTE | 2018-05-06 18:45 | NUR ---
RECEIVED AN ORDER FROM DR STEELE TO INSERT A ATWOOD CATHETER IF PATIENT CONTINUES TO RETAIN URINE. VERBAL READBACK DONE
--- NOTE | 2018-05-06 19:00 | NUR ---
PATIENT REORIENTED TO ENVIRONEMENT, TUBES HIDDEN FROM PATIENT, TOILETING FOOD AND REPOSITIONING DONE Q 2 HOURS PATIENT EDUCATED ON RESTRAINTS,
--- NOTE | 2018-05-06 19:15 | NUR ---
RN NOTES: PAGED DR TERRY REGARDING K LEVELS THEY WERE NOT REPLACED BY PHARMACY TODAY. UNABLE TO REACH PHARMACY AWAITING MD ORDERS. ENDORSED TO GINGER ANTON
--- NOTE | 2018-05-06 19:25 | NUR ---
RN CLOSING NOTES: PATIENT RESTING IN BED. NONLABORED BREATHING NOTED ON 2 L NASAL CANNULA. PATIENT AROUSABLE TO NAME AND TOUCH, RESPONSIVE, DENYING CHEST PAIN NO NEURO CHANGES SINCE AM ASSESSMENT. NEURO CHECKS DONE Q 2 HOURS AND PATIENT BEING MONITORED FOR CHANGES. NO SEIZURES DURING SHIFT. VISUAL CHECKS DONE BY MYSELF AND LACING STRING CUTTER Q 15 MINS. SEIZURE AND ASPIRATION PRECAUTIONS IMPLEMENTD PATIENT REMAINED AT RISK FOR INJURING HIMSELF THROUGHOUT SHIFT HE TRIES TO REMOVE IV LINE WELL NASAL CANNULA, PATIENT ALSO TRYING TO GET OUT OF BED WITHOUT ASSISTANCE. BENEFITS AND RISKS EXPLAINED TO PATIENT, EDUCATED ON HIS HIGH BP, REORIENTED TO ENVIRONMENT. RESTRAINTS RELEASED AND CIRCULATION GOOD UPON ASSESSMENT PER PROTOCOL. SEE RESTRAINTS CHARTING UNDER INTERVENTION IV ON LFA GAUGE 20 PATENT AND INTACT. BED IN LOWEST LOCKED POSITION CALL LIGHT WITHIN REACH PATIENT KEPT CLEAN AND DRY THROUGHOUT SHIFT. TURNED AND REPOSITIONED EVERY 2 HOURS ENDORSED TO GINGER ANTON
--- NOTE | 2018-05-06 19:25 | NUR ---
RN CLOSING NOTES: PATIENT RESTING IN BED. NONLABORED BREATHING NOTED ON 2 L NASAL CANNULA. PATIENT AROUSABLE TO NAME AND TOUCH, RESPONSIVE, DENYING CHEST PAIN NO NEURO CHANGES SINCE AM ASSESSMENT. NEURO CHECKS DONE Q 2 HOURS AND PATIENT BEING MONITORED FOR CHANGES. NO SEIZURES DURING SHIFT. VISUAL CHECKS DONE BY MYSELF AND CARE TECHNICIAN Q 15 MINS. SEIZURE AND ASPIRATION PRECAUTIONS IMPLEMENTD PATIENT REMAINED AT RISK FOR INJURING HIMSELF THROUGHOUT SHIFT HE TRIES TO REMOVE IV LINE WELL NASAL CANNULA, PATIENT ALSO TRYING TO GET OUT OF BED WITHOUT ASSISTANCE. BENEFITS AND RISKS EXPLAINED TO PATIENT, EDUCATED ON HIS HIGH BP, REORIENTED TO ENVIRONMENT. RESTRAINTS RELEASED AND CIRCULATION GOOD UPON ASSESSMENT PER PROTOCOL. SEE RESTRAINTS CHARTING UNDER INTERVENTION IV ON LFA GAUGE 20 PATENT AND INTACT. BED IN LOWEST LOCKED POSITION CALL LIGHT WITHIN REACH
--- NOTE | 2018-05-06 19:25 | NUR ---
MS RN OPENING NOTES: RECEIVED PT IN BED AND IS ASLEEP AT THIS TIME. PT APPEARS TO BE LETHARGIC. PT IS ON 2LPM VIA NC. PT ALSO BILATERAL SOFT WRIST RESTRAINTS. PT HAS L FOREARM #20G AND IS PATENT AND INTACT. CURRENTLY H/L. CALL LIGHT WITHIN PT'S REACH. BED KEPT IN LOW, LOCKED POSITION, AND SIDE RAILS X 2UP. BED ALARM ACTIVATED. WILL CONTINUE TO MONITOR PT.
[2018-05-06] MEDS: LEVETIRACETAM (500MG) 500 MG in IV NS 0.9% 100 ML IV SCH (20:00)
[2018-05-06] MEDS: ENOXAPARIN SODIUM 40 MG/0.4 ML DISP.SYRIN SQ SCH ×2 (20:34→21:12)
--- NOTE | 2018-05-06 21:12 | NUR ---
MS RN NOTES: LOVENOX 2200 NONADMIN. LOVENOX 40 ALREADY GIVEN AND SPOKE WITH PHARMACY AFTER HOURS. IT IS A DUPLICATE.
[2018-05-06] MEDS: QUETIAPINE FUMARATE 100 MG TABLET PO SCH (22:11)
[2018-05-06] MEDS ORDERED: POTASSIUM CL. PREMIX PERIPHER. 50 ML IV ONE (23:00)
--- NOTE | 2018-05-06 23:01 | NUR ---
MS RN NOTES: SPOKE WITH CNC LASER OPERATOR NEGRITO MARTI. INFORMED HER OF POTASSIUM LEVEL 3.3 ; GOT ORDER FOR POTASSIUM 40MEQ IV ONE TIME.
[2018-05-07] VITALS: BP 96/69
--- NOTE | 2018-05-07 07:25 | NUR ---
RN OPENING NOTES RECEIVED PT. VSS, NO S/S OF RESP DISTRESS OR PAIN. PT IS SLEEPING IN BED COMFORTABLY. SOFT WRIST RESTRAINTS NOTED AT BEDSIDE, TO BE USED IF PT POSES A RISK FOR INJURY. PT CURRENTLY ON 2L O2 VIA NC. PT IS VERY LETHARGIC, PER LACE ROLLER REPORT, HOWEVER IS ALSO EASILY AROUSEABLE. BLADDER SCAN FOUND 320 ML OF URINE IN AM. WILL REPEAT BLADDERS CAN AND INSERT FC IF PT RETAINS.
--- NOTE | 2018-05-07 07:34 | NUR ---
MS RN CLOSING NOTES: ALL NEEDS WERE ATTENDED AND ANTICIPATED FOR. PT HAS BILATERAL SOFT WRIST RESTRAINTS. PT STILL LETHARGIC. PT IS ON 2LPM VIA NC. PT HAS IV AND IS PATENT AND INTACT. BED ALARM ACTIVATED. BLADDER SCAN DONE THIS AM AND WAS 437 ML. CALL LIGHT WITHIN PT'S REACH. BED KEPT IN LOW, LOCKED POSITION, AND SIDE RAILS X 3 UP. RAILS PADDED FOR SEIZURE PRECAUTIONS. ENDORSED TO AM NURSE FOR ISIDRO.
[2018-05-07 08:00] VITALS: BP 127/77
[2018-05-07] MEDS: ARIPIPRAZOLE 5 MG TABLET PO SCH (08:49)
[2018-05-07] MEDS: LEVETIRACETAM (500MG) 500 MG in IV NS 0.9% 100 ML IV SCH (08:49)
[2018-05-07] MEDS: NICOTINE PATCH (21MG) 21 MG PATCH.TD24 TD SCH (08:56)
[2018-05-07] MEDS: LISINOPRIL (10MG) 10 MG TABLET PO SCH (08:56)
[2018-05-07] MEDS: METOPROLOL SUCCINATE 50 MG TAB.SR.24H PO SCH (09:00)
[2018-05-07] MEDS ORDERED: VALPROATE 1,000 MG in IV NS 0.9% 100 ML IV STA (10:00)
[2018-05-07] MEDS: DIVALPROEX SODIUM 500 MG TABLET.DR PO SCH (13:58)
--- NOTE | 2018-05-07 14:25 | NUR ---
RN NOTES ATWOOD CATHETER INSERTED FOLLOWING A BLADDER SCAN THAT FOUND 850 ML OF RETAINED URINE. WILL CONTINUE TO MONITOR.
[2018-05-07 15:42] LABS: CALCIUM, SERUM 8.5 mg/dL (8.5-10.1); CREATININE 1.3 mg/dL (0.6-1.3); PHOSPHORUS 2.4 mg/dL (2.5-4.9); POTASSIUM 3.4 mmol/L (3.5-5.1)
[2018-05-07 16:00] VITALS: BP 152/97
[2018-05-07] MEDS: HYDROCODONE/APAP 5/325MG 1 EACH TABLET PO PRN (16:50)
[2018-05-07] MEDS: MIRTAZAPINE 15 MG TABLET PO SCH (17:01)
--- NOTE | 2018-05-07 18:42 | NUR ---
RN CLOSING NOTE PT IN BED RESTING. NO S/S OF RESP DISTRESS OR SOB. NO C/O PAIN. BILATERAL SOFT WRIST RESTRAINTS APPLIED. PT IS CONTINUALLY ATTEMPTING TO GET OUT OF BED DESPITE FALL PRECAUTIONS. PT STARTED ON DEPAKOTE LOAD. POSSIBLE D/C IN AM WITH 24 HOUR CAREGIVER. SAFETY MEASURES IN PLACE, CALL LIGHT WITHIN REACH. WILL ENDORSE TO PORT D[place]ER FOR ISIDRO.
--- NOTE | 2018-05-07 19:05 | NUR ---
MS RN OPENING NOTES: RECEIVED PT AND IS SITTING UP IN BED WITH 2LPM VIA NC. PT HAS IV ON L FOREARM #20G AND IS PATENT AND INTACT. CURRENTLY H/L. PT APPEARS TO BE LETHARGIC. PT IS ON BILATERAL SOFT WRIST RESTRAINTS. PT HAS ATWOOD CATH AND IS ATTACHED TO DRAINAGE BAG WITH YELLOW URINE DRAINING. CALL LIGHT WITHIN PT'S REACH. BED ALARM ACTIVATED. CALL LIGHT WITHIN PT'S REACH. BED KEPT IN LOW, LOCKED POSITION, AND SIDE RAILS X 2UP. WILL CONTINUE TO MONITOR P.T
[2018-05-07 20:00] VITALS: BP 160/97
[2018-05-07] MEDS: CLONIDINE HCL 0.1 MG TABLET PO PRN (20:47)
[2018-05-07] MEDS: QUETIAPINE FUMARATE 100 MG TABLET PO SCH (21:00)
[2018-05-07] MEDS: ENOXAPARIN SODIUM 40 MG/0.4 ML DISP.SYRIN SQ SCH (21:02)
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
[2018-05-07 22:53] VITALS: BP 139/69
--- NOTE | 2018-05-08 06:41 | NUR ---
MS ANTON CLOSING NOTES: ALL NEEDS WERE ATTENDED AND ANTICIPATED FOR. PT REMAINS ON RESTRAINTS. PT KEPT CLEAN, DRY, AND COMFORTABLE. 2 HOUR CHECKS PERFORMED. PT ON 2LPM VIA NC. PT LETHARGIC. PT HAS IV ON L FOREARM #20G AND IS PATENT AND INTACT. CURRENTLY H/L. CALL LIGHT WITHIN PT'S REACH. BED KEPT IN LOW, LOCKED POSITION, AND SIDE RAILS X 2UP. BED ALARM ACTIVATED. WILL ENDORSE TO AM NURSE FOR ISIDRO. Addendum: 05/08/18 at 0653 by OSMAR VAZQUEZ RN PT HAS ATWOOD CATH AND IS ATTACHED TO DRAINAGE BAG WITH YELLOW URINE DRAINING. OUTPUT WAS 400ML.
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
[2018-05-08 08:00] VITALS: BP 141/82
[2018-05-08] MEDS: ARIPIPRAZOLE 5 MG TABLET PO SCH (08:51)
[2018-05-08] MEDS: METOPROLOL SUCCINATE 50 MG TAB.SR.24H PO SCH (08:52)
[2018-05-08] MEDS: LISINOPRIL (10MG) 10 MG TABLET PO SCH (08:53)
[2018-05-08] MEDS: NICOTINE PATCH (21MG) 21 MG PATCH.TD24 TD SCH (08:53)
[2018-05-08] MEDS: DIVALPROEX SODIUM 500 MG TABLET.DR PO SCH ×2 (08:53→12:08)
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
[2018-05-08] MEDS ORDERED: POTASSIUM CHLORIDE 20 MEQ POWDER PACKET PO ONE (14:00)
[2018-05-08 16:00] VITALS: BP 159/94
[2018-05-08] MEDS: MIRTAZAPINE 15 MG TABLET PO SCH (18:03)
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
--- NOTE | 2018-05-08 19:30 | NUR ---
RN MS NOTES RECEIVED PATIENT IN BED, AWAKE ALERT X 1 NOTED WITH CONFUSION AND FORGETFULNESS AND DELAYED VERBAL RESPONSE. RESPIRATIONS EVEN AND UNLABORED WITH EQUAL RISE AND FALL OF CHEST ON O2 2L VIA NC, IV SITE TO LEFT FA #20 SL INTACT AND PATENT, NO REDNESS NO INFILTRATION PRESENT, ATWOOD CATHETER INTACT AND PATENT DRAINING WELL URINE YELLOW. SAFETY PRECAUTIONS IN PLACE, LOW BED, BED LOCKED BED ALARM AND SIDE RAILS ORDERED IN PLACE, CALL LIGHT KEPT WITHIN REACH, ORIENTED TO STAFF. ALL NEEDS ATTENDED AT THIS TIME REMAINS COMFORTABLE WILL CONTINUE TO MONITOR.
[2018-05-08 20:00] VITALS: BP 150/90
[2018-05-08 20:07] VITALS: BP 150/90
[2018-05-08] MEDS: QUETIAPINE FUMARATE 100 MG TABLET PO SCH (22:02)
[2018-05-08] MEDS: ENOXAPARIN SODIUM 40 MG/0.4 ML DISP.SYRIN SQ SCH (22:03)
--- NOTE | 2018-05-09 03:04 | NUR ---
RN MS NOTES PATIENT REMAINS IN BED, SLEEPING BUT EASILY AROUSABLE, RESPIRATION EVEN AND UNLABORED WITH EQUAL RISE AND FALL OF CHEST O2 VIA NC 2L INTACT, BILATERAL SOFT WRIST RESTRAINTS IN PLACE WITH VISUAL CHECK Q15 ORDERED, PATIENT REPOSITIONED, REMAINS CLEAN AND DRY. IV SITE TO LEFT FA INTACT, INTACT AND PATENT, NO REDNESS , NO INFILTRATION PRESENT, ALL NEEDS ATTENDED FLUID OFFERED TOLERATED, SAFETY PRECAUTIONS IN PLACE, LOW BED, AND LOCKED, CALL ALARM IN PLACE. ENDORSEMENT GIVEN TO NURSE FOR CONTINUITY OF CARE. PATIENT LEFT COMFORTABLE,STABLE AND SAFE.
--- NOTE | 2018-05-09 03:22 | NUR ---
MS SUE INITIAL NOTES GOT REPORT FROM PREVIOUS NURSE AND CHECKED THE PATIENT, HE'S REMAIN SLEEPING COMFORTABLY IN BED WITHOUT ANY ACUTE DISTRESS NOTED. PT STILL ON SOFT WRIST RESTRAINT PULSE PRESENT AND SKIN WARM TO TOUCH. KEPT HIM WARM AND COMFORTABLE AT ALL TIMES. BED ALARM SET FOR PT SAFETY. KEPT HIM WARM AND COMFORTABLE AT ALL TIMES. WILL CONTINUE TO MONITOR. PLACE CALL LIGHT AT REACH.
--- NOTE | 2018-05-09 07:17 | NUR ---
MS CLUBHOUSE ATTENDANT CLOSING NOTES PT REMAINS SLEEPING COMFORTABLY IN BED , RESPIRATION EVEN AND NON-LABORED NOT IN ANY ACUTE DISTRESS NOTED. STABLE DESMOND THE NIGHT. ALL DUE MEDS GIVEN AND ALL NEEDS MET,. STILL ON SOFT WRIST RESTRAINT FOR PT SAFETY. ATWOOD TO GRAVITY WITH CLEAR YELLOW OUTPUT NOTED. KEPT HIM WARM AND COMFORTABLE AT ALL TIMES. PLACE CALL LIGHT AT REACH. BED ALARM SET AND BED IN LOW AND LOCK IN POSITION WITH SIDE RAILS X3 UP. ENDORSE TO AM NURSE FOR CONTINUITY OF CARE.
--- NOTE | 2018-05-09 08:00 | NUR ---
MS SLOANE AM NOTES: RECEIVED PT AND IS SITTING UP IN BED WITH 2LPM VIA NC. PT HAS IV ON L FOREARM #20G AND IS PATENT AND INTACT. CURRENTLY H/L. PT APPEARS TO BE LETHARGIC. MAX ASSIST DURING MEALS DUE TO EUGENIO ARM WEAKNESS EVEN WHEN EUGENIO WRIST RESTRAINTS ARE RELEASED DURING MEALS BUT CLOSE MONITORING DONE. ATE 100%BREAKFAST.PT IS ON BILATERAL SOFT WRIST RESTRAINTS. PT HAS ATWOOD CATH AND IS ATTACHED TO DRAINAGE BAG WITH DRAINING YELLOW URINE.CALL LIGHT WITHIN PT'S REACH. BED ALARM ACTIVATED.BED KEPT IN LOW, LOCKED POSITION, AND SIDE RAILS X 2UP. WILL CONTINUE TO MONITOR PT.
[2018-05-09 08:10] VITALS: BP 124/78
[2018-05-09] MEDS: DIVALPROEX SODIUM 500 MG TABLET.DR PO SCH ×2 (08:23→13:17)
[2018-05-09] MEDS: NICOTINE PATCH (21MG) 21 MG PATCH.TD24 TD SCH (08:24)
[2018-05-09] MEDS: ARIPIPRAZOLE 5 MG TABLET PO SCH (08:24)
[2018-05-09] MEDS: METOPROLOL SUCCINATE 50 MG TAB.SR.24H PO SCH (08:25)
[2018-05-09] MEDS: LISINOPRIL (10MG) 10 MG TABLET PO SCH (08:26)
[2018-05-09 08:48] VITALS: BP 124/79
--- NOTE | 2018-05-09 12:00 | NUR ---
NIKOLE contacted pt's DPOA Cherelle Graves and requested him to send SW copy of DPOA. NIKOLE gave Cherelle AGUSTIN's email address to email a copy.
--- NOTE | 2018-05-09 15:22 | NUR ---
RN NOTES/ ATWOOD CATHETER REMOVAL ATWOOD CATHETER REMOVED WITH 450 ML OUTPUT
--- NOTE | 2018-05-09 15:50 | NUR ---
PT AMBULATED WITH P.T.USING FWW ALONG THE HALLWAY WITH SLOW,STEADY GAIT-WITH SUPPORT.PT IS A HIGH FALL RISK PER P.T.PT LIVES WITH 24 HOUR CAREGIVER.NOTIFIED CECE SHEN (LISA) OF PT'S DISCHARGE AND YULI DAY,PT'S CG IS ON HIS WAY AND WILL USE [facility] FOR TRANSPORT.
[2018-05-09 16:00] VITALS: BP 133/82
--- NOTE | 2018-05-09 17:09 | NUR ---
PT IS TO BE DISCHARGED HOME WITH TOYA BENSON DAY AT BEDSIDE.ATWOOD CATHETER HAS BEEN REMOVED AND VOIDED WITH CLEAR YELLOW URINE WITHOUT DIFFICULTY AND MADE SOFT BOWEL MOVEMENT X2 IN THE TOILET.MAX ASSIST WITH AMB WITH FWW DUE TO SLOW,STEADY GAIT.COACHING NEEDED.PT IS HIGH FALL RISK.CG TEACHING GIVEN FOR PT SAFETY.CALLED TRANSPORT FOR PT TO BE BROUGHT HOME-AWAITING FOR TRANSPORT TO ARRIVE.TOYA BENSON PICKED UP THE PRESCRIPTION AT [facility].
[2018-05-09] MEDS: MIRTAZAPINE 15 MG TABLET PO SCH (17:42)
--- NOTE | 2018-05-09 17:46 | NUR ---
RN CLOSING NOTES PT IS AWAKE AND ALERT TO NAME. CAREGIVER, YULI IS AT BEDSIDE AND WAITING FOR TRANSPORT FOR DISCHARGE. CALL LIGHT IS WITHIN REACH, BED ALARM IS ON, LOW POSITION, SIDE RAILS X2 UP. CONTINUITY OF CARE AND DISCHARGE INFORMATION ABOUT PATIENT'S CONDITION AND TREATMENT WAS RELAYED TO THE CAREGIVER, WHO VERBALIZED UNDERSTANDING.
--- NOTE | 2018-05-09 18:40 | NUR ---
DISCHARGED PT HOME VIA AMBULANCE WITH STABLE V/S.DENIES ANY PAIN OR DISTRESS.WITH CG.IV H/L REMOVED TO LFA WITHOUT BLEEDING NOTED.
== END 2018-05-09 18:38 | disposition home or self-care (01) | DRG 53 ==
LOC: ER 15:43 → TELE 18:57 → MED 05-06 08:35
PROVIDERS: ADMIT Internal Medicine; ATTEND Internal Medicine
DX: R56.9 Unspecified convulsions (principal); N17.0 Acute kidney failure with tubular necrosis; G93.41 Metabolic encephalopathy; Z86.73 Personal history of transient ischemic attack (TIA), and cerebral infarction without residual deficits; F20.9 Schizophrenia, unspecified; E11.9 Type 2 diabetes mellitus without complications; E78.5 Hyperlipidemia, unspecified; I25.2 Old myocardial infarction; S01.90XS Unspecified open wound of unspecified part of head, sequela; X58.XXXS Exposure to other specified factors, sequela; Z79.82 Long term (current) use of aspirin; Z79.899 Other long term (current) drug therapy; F12.90 Cannabis use, unspecified, uncomplicated; E87.6 Hypokalemia; T50.905A Adverse effect of unspecified drugs, medicaments and biological substances, initial encounter; Y92.009 Unspecified place in unspecified non-institutional (private) residence as the place of occurrence of the external cause; I10 Essential (primary) hypertension; I16.0 Hypertensive urgency; I25.10 Atherosclerotic heart disease of native coronary artery without angina pectoris; Z82.49 Family history of ischemic heart disease and other diseases of the circulatory system; Z83.3 Family history of diabetes mellitus
CPT/HCPCS: 36415; 70450-TC; 71045-TC; 80048-TC; 80061-TC; 80076-TC; 80164-TC; 80305; 82550-TC; 82962-TC; 83735-TC; 84100-TC; 84484-TC; 85025-TC; 85730-TC; 87081-TC; 93307-TC; 95819-TC; 97110-TC; 97112-TC; 97116-TC; 97530-TC; A4606; G0480; J0360; J1650; J1953; J2060; J3480; J3490; J7030; J7040; J7050; Z7610

== ENCOUNTER 2018-05-20 20:52 | Emergency (ER) | payer BC ==
[~2018-05-20] VITALS: Ht 172.7 cm; Wt 62.1 kg
[~2018-05-20 20:52] MED LIST changes: -AMLO10TA2 PO; +ARIP10TA9 PO; -ASPI-1169 PO; -ATOR10TA GT; +METO-357 PO; +MIRT15TA7 PO; -QUET100T PO; -QUET25TA PO; +QUET300T2 PO; -VALS1TAB54 PO
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
--- NOTE | 2018-05-20 21:43 | NUR ---
[facility] [phone]
[2018-05-20] MEDS ORDERED: IV NS 0.9% 1,000 ML BAG IV ONE (22:00)
--- NOTE | 2018-05-20 22:19 | NUR ---
PT NOW NOTED WITH SLURRED SPEECH AND SOMEWHAT LETHARGIC BUT CONTINUES TO ANSWER QUESTIONS. XRAY AT BEDSIDE.
--- NOTE | 2018-05-20 22:21 | NUR ---
PT LEFT TO CT SCAN
--- NOTE | 2018-05-20 22:25 | NUR ---
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 NOTIFIED DR NEVAREZ OF THIS.
[2018-05-20] MEDS ORDERED: DEXTROSE 50%-WATER 50 ML DISP.SYRIN ONE (22:45)
[2018-05-20] MEDS ORDERED: DEXTROSE 50%-WATER 50 ML DISP.SYRIN IVP ONE (23:00)
--- NOTE | 2018-05-20 23:00 | NUR ---
ATWOOD CATH 16FR INSERTED PER MD; URINE DRAINED TO GRAVITY STARTING CLEAR JENNIFER THEN BECAME CLOUDY, PURULENT, FOUL SMELLING. DRAINAGE TOTAL 1100ML
--- NOTE | 2018-05-20 23:18 | NUR ---
BGL RECHECK = 106; NOTIFIED
[2018-05-20 23:20] LABS: BASOPHILS % (AUTO) 0.3 % (0.0-2.0); EOSINOPHILS % (AUTO) 1.7 % (0.0-6.0); HEMATOCRIT 45 % (39-51); HEMOGLOBIN 13.9 g/dL (13.5-17.5); LYMPHOCYTES # (AUTO) 2.2 /CMM (0.8-4.8); LYMPHOCYTES % (AUTO) 26.8 % (20.0-44.0); MEAN CORPUSCULAR HEMOGLOBIN 27 PG (26.0-33.0); MEAN CORPUSCULAR HGB CONC 31 g/dl (31.0-36.0); MEAN CORPUSCULAR VOLUME 87 fL (80-96); MONOCYTES # (AUTO) 0.6 /CMM (0.1-1.30); MONOCYTES % (AUTO) 6.8 % (2.0-12.0); NEUTROPHILS # (AUTO) 5.4 /CMM (1.8-8.9); NEUTROPHILS % (AUTO) 64.4 % (43.0-81.0); PLATELET COUNT (AUTO) 287 /CMM (150-450); RDW COEFFICIENT OF VARIATION 15.2 (11.5-15.0); RED BLOOD CELL COUNT(AUTO) 5.11 MIL/uL (4.5-6.0); WHITE BLOOD COUNT (AUTO) 8.3 K/uL (4.3-11.0)
[2018-05-20 23:33] LABS: CALCIUM, SERUM 9.1 mg/dL (8.5-10.1); CARBON DIOXIDE 31 mmol/L (21-32); CHLORIDE 106 mmol/L (98-107); CREATININE 1.5 mg/dL (0.6-1.3); GLUCOSE 69 mg/dL (74-106); POTASSIUM 3.1 mmol/L (3.5-5.1); SODIUM SERUM 143 mmol/L (136-145); UREA NITROGEN, BLOOD 41 mg/dL (7-18)
[2018-05-20 23:39] LABS: ALANINE AMINOTRANSFERASE 16 U/L (12-78); ALBUMIN 3.3 g/dL (3.4-5.0); ALKALINE PHOSPHATASE 126 U/L (46-116); ASPARTATE AMINOTRANSFERASE 17 U/L (15-37); BILIRUBIN,DIRECT 0.1 mg/dL (0.0-0.2); BILIRUBIN,TOTAL 0.3 mg/dL (0.2-1.0); LIPASE 258 U/L (73-393); TOTAL PROTEIN, SERUM 8.4 g/dL (6.4-8.2)
[2018-05-20 23:40] LABS: TROPONIN I < 0.017 ng/mL (0.00-0.056)
[2018-05-21 00:03] LABS: APPEARANCE,URINE TURBID (CLEAR)
[2018-05-21 00:04] LABS: COLOR,URINE YELLOW (YELLOW); PROTEIN,URINE 2+ mg/dl (NEGATIVE)
[2018-05-21 00:05] LABS: BILIRUBIN,URINE NEGATIVE (NEGATIVE); BLOOD, URINE 3+ Ery/uL (NEGATIVE); KETONES,URINE NEGATIVE (NEGATIVE); UGLUCOSE 1+ mg/dL (NEGATIVE); UROBILINOGEN,URINE 0.2 EU/dL (0.2)
[2018-05-21 00:06] LABS: LEUKOCYTE ESTERASE ,URINE 3+ (NEGATIVE); NITRITE, URINE POSITIVE (NEGATIVE)
[2018-05-21 00:09] LABS: BACTERIA,URINE Moderate /HPF (None Seen); SQUAMOUS EPITHELIAL CELL,UR Few /HPF (None Seen); WBC,URINE TOO NUMEROUS TO COUN /HPF (0-3)
--- NOTE | 2018-05-21 00:23 | NUR ---
BGL RECHECK = 66. MD NOTIFIED. GAVE PT A SANDWICH AND JUICE AND ENCOURAGED TO EAT. NAD NOTED. VSS.
[2018-05-21] MEDS ORDERED: CEFTRIAXONE 1GM BAG (ER ONLY) 1 GM/50 ML PIGGYBACK IV ONE (00:30)
[2018-05-21] MEDS ORDERED: POTASSIUM CHLORIDE 20 MEQ TAB.PRT.SR PO ONE ×2 (00:43→01:00)
[2018-05-21] MEDS ORDERED: CEFTRIAXONE 1 G VIAL ONE (00:43)
--- NOTE | 2018-05-21 00:54 | NUR ---
spoke with osiel protective services case worker, per osiel, have SHRUTHI Landon present case to prem wilcox MD, if he accepts pt, they will set up a bed for pt at [facility]. MD [place] [phone] fax for prem wilcox [phone] [phone] for either [facility] or [place]
--- NOTE | 2018-05-21 01:05 | NUR ---
CALLED [facility]; COSMETICS PRESSER STATES "NO AVAILABILITY IN [facility]"
--- NOTE | 2018-05-21 01:17 | NUR ---
NO ANSWER FROM [facility]
--- NOTE | 2018-05-21 01:30 | NUR ---
Faxed facesheet and clinicals to prem wilcox at [phone]
--- NOTE | 2018-05-21 02:02 | NUR ---
CALLED [facility] FOR BED UPDATE. PER [facility], SHE IS AWAITING CALLBACK FROM TO SEE IF MD ACCEPTED PT. TOLD [facility], WHILE MD NEVAREZ WAS SPEAKING TO MD ONEILL, MD ONEILL SAID HE WILL ACCEPT PATIENT. [facility] THEN TOLD ME TO CALL [facility] FOR A MS BED. I CALLED [facility] TRANSFER LINE, PER TRANSFER REP, THEY ARE AWAITING A CALL FROM SEYMOUR BEFORE THEY CAN ASSIGN BED TO PATIENT. AWITING CALL BACK FROM EITHER [facility] OR [facility] TRANSFER REP.
--- NOTE | 2018-05-21 02:11 | NUR ---
RESTING QUIETLY, NAD NOTED. VSS. ALL NEEDS ATTENDED TO. ASLEEP, EASILY AROUSABLE.
--- NOTE | 2018-05-21 03:21 | NUR ---
[id number] MS Bed report [phone] marco
--- NOTE | 2018-05-21 03:23 | NUR ---
ETA 30 min
--- NOTE | 2018-05-21 03:30 | NUR ---
report given to Ami RN for transfer
[2018-05-21 03:56] VITALS: BP 167/100
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
== END 2018-05-21 03:58 | disposition short-term general hospital (02) ==
LOC: ER 20:53
DX: N30.00 Acute cystitis without hematuria (principal); R53.1 Weakness; E87.6 Hypokalemia; R29.6 Repeated falls; I25.2 Old myocardial infarction; I10 Essential (primary) hypertension; E11.9 Type 2 diabetes mellitus without complications; E78.00 Pure hypercholesterolemia, unspecified; F17.200 Nicotine dependence, unspecified, uncomplicated; F03.90 Unspecified dementia, unspecified severity, without behavioral disturbance, psychotic disturbance, mood disturbance, and anxiety; F20.9 Schizophrenia, unspecified; R93.0 Abnormal findings on diagnostic imaging of skull and head, not elsewhere classified; Z88.0 Allergy status to penicillin; Z86.73 Personal history of transient ischemic attack (TIA), and cerebral infarction without residual deficits; W18.39XA Other fall on same level, initial encounter; Y93.89 Activity, other specified; Y92.89 Other specified places as the place of occurrence of the external cause; Y99.8 Other external cause status
CPT/HCPCS: 36415; 70450-TC; 71045-TC; 80048-TC; 80076-TC; 81000-TC; 82962-TC; 83690-TC; 84484-TC; 85025-TC; 87086-TC; 87186-TC; A4606; J0696; J7030; J7060; Z7610

== ENCOUNTER 2019-10-22 11:53 | Emergency (ER) | payer BC, MEDICAID ==
[~2019-10-22] VITALS: Ht 177.8 cm; Wt 69.4 kg
[~2019-10-22 11:53] MED LIST changes: +BUPR-319 PO; -BUPR300T54 PO
--- NOTE | 2019-10-22 12:15 | NUR ---
JASON PICKENS 88 FROM HIS HOME, FOUND BY SOCIAL; WORKER LETHARGIC/SLOW TO RESPOND WITH PINPOINT PUPILS. ON ROOM AIR, BREATHING EVENLY AND UNLABORED. CONNECTED TO THE MONITOR AND PULSE OX. WILL CONTINUE TO MONITOR ACCORDINGLY.
--- NOTE | 2019-10-22 12:39 | NUR ---
urine collected and sent to lab
[2019-10-22 12:44] LABS: BASOPHILS % (AUTO) 0.5 % (0.0-2.0); EOSINOPHILS % (AUTO) 0.8 % (0.0-6.0); HEMATOCRIT 48 % (39-51); HEMOGLOBIN 15.7 g/dL (13.5-17.5); MEAN CORPUSCULAR HGB CONC 33 g/dl (31.0-36.0); MEAN CORPUSCULAR VOLUME 90 fL (80-96); MONOCYTES # (AUTO) 0.4 /CMM (0.1-1.30); MONOCYTES % (AUTO) 7.8 % (2.0-12.0); NEUTROPHILS % (AUTO) 54.9 % (43.0-81.0); PLATELET COUNT (AUTO) 171 /CMM (150-450); RED BLOOD CELL COUNT(AUTO) 5.34 MIL/uL (4.5-6.0); WHITE BLOOD COUNT (AUTO) 5.5 K/uL (4.3-11.0)
[2019-10-22 12:54] LABS: APPEARANCE,URINE Clear (CLEAR); BILIRUBIN,URINE Negative (NEGATIVE); BLOOD, URINE Negative Ery/uL (NEGATIVE); COLOR,URINE Yellow (YELLOW); KETONES,URINE Negative (NEGATIVE); LEUKOCYTE ESTERASE ,URINE Negative (NEGATIVE); NITRITE, URINE Negative (NEGATIVE); PROTEIN,URINE Negative (NEGATIVE); UGLUCOSE Negative (NEGATIVE); UROBILINOGEN,URINE 0.2 EU/dL (0.2)
[2019-10-22 14:00] LABS: CALCIUM, SERUM 9.1 mg/dL (8.5-10.1); CARBON DIOXIDE 30 mmol/L (21-32); CHLORIDE 107 mmol/L (98-107); CREATININE 0.9 mg/dL (0.6-1.3); GLUCOSE 78 mg/dL (74-106); SODIUM SERUM 141 mmol/L (136-145); UREA NITROGEN, BLOOD 13 mg/dL (7-18)
[2019-10-22 14:06] LABS: ACETAMINOPHEN 0 ug/ml (10-30); ALANINE AMINOTRANSFERASE 35 U/L (12-78); ALKALINE PHOSPHATASE 118 U/L (46-116); ASPARTATE AMINOTRANSFERASE 35 U/L (15-37); BILIRUBIN,DIRECT 0.1 mg/dL (0.0-0.2); BILIRUBIN,TOTAL 0.5 mg/dL (0.2-1.0); SALICYLATE 0.8 mg/dL (2.8-20.0); TOTAL PROTEIN, SERUM 7.2 g/dL (6.4-8.2)
[2019-10-22 14:14] LABS: ALCOHOL, BLOOD < 3 mg/dL (0-0)
--- NOTE | 2019-10-22 19:36 | NUR ---
PT APPEARS TO BE RESTING COMFORTABLY WITH NO S/S OF PAIN OR DISTRESS.
--- NOTE | 2019-10-22 20:45 | NUR ---
PT'S BP WAS ELEVATED 200/120. BP WAS CHECKED 3 TIMES. MD NOTIFIED AND NEW ORDERS WERE GIVEN.
[2019-10-22] MEDS ORDERED: CLONIDINE HCL 0.1 MG TABLET ONE (20:50)
[2019-10-22] MEDS ORDERED: CLONIDINE HCL 0.1 MG TABLET PO ONE (21:00)
--- NOTE | 2019-10-22 21:00 | NUR ---
GOT PT A PAIR OF SHOES AND NEW PANTS, PT HAS WET PANTS AND NO SHOES. PT WILL BE DISCHARGED WHEN BP IS WNL
--- NOTE | 2019-10-22 21:48 | NUR ---
PT IS AA&O X4. PT IS AMBULATORY WITH A STEADY GAIT. PT IS GETTING DRESSED AND PT REC'D A SANDWICH AND JUICE. PT STATED THAT HE IS ABLE TO TAKE THE BUS HOME. MD IS AWARE AND OK'D PT'S DISCHARGE.
[2019-10-22 22:32] VITALS: BP 178/98
--- NOTE | 2019-10-22 22:32 | NUR ---
Patient discharged to home in stable condition. Written and verbal after care instructions given. Patient verbalizes understanding of instruction. PT REC'D A WARM JACKET AND IS TAKING THE BUS HOME. VSS.
== END 2019-10-22 22:33 | disposition home or self-care (01) ==
LOC: ER 11:56
DX: T40.4X1A Poisoning by other synthetic narcotics, accidental (unintentional), initial encounter (principal); I25.2 Old myocardial infarction; E11.9 Type 2 diabetes mellitus without complications; I10 Essential (primary) hypertension; F17.200 Nicotine dependence, unspecified, uncomplicated; Z90.49 Acquired absence of other specified parts of digestive tract; Z88.0 Allergy status to penicillin; Z86.73 Personal history of transient ischemic attack (TIA), and cerebral infarction without residual deficits; Z79.899 Other long term (current) drug therapy; Y92.89 Other specified places as the place of occurrence of the external cause
CPT/HCPCS: 36415; 80048; 80076; 80305; 80307; 80329; 81001; 85025; 99283; G0480; 81000-TC

== ENCOUNTER 2020-05-30 14:17 | Emergency (ER) | payer BC, MEDICAID ==
[~2020-05-30] VITALS: Ht 177.8 cm; Wt 68.0 kg
[2020-05-30 14:31] VITALS: BP 148/94
[2020-05-30] MEDS ORDERED: LIDOCAINE HCL/PF 1% 30 ML SDV ONE (14:47)
== END 2020-05-30 17:06 | disposition home or self-care (01) ==
LOC: ER 14:20
DX: S60.456A Superficial foreign body of right little finger, initial encounter (principal); I10 Essential (primary) hypertension; I25.2 Old myocardial infarction; E11.9 Type 2 diabetes mellitus without complications; Z88.0 Allergy status to penicillin; Z79.899 Other long term (current) drug therapy; Z86.73 Personal history of transient ischemic attack (TIA), and cerebral infarction without residual deficits; X58.XXXA Exposure to other specified factors, initial encounter; Y93.89 Activity, other specified; Y92.89 Other specified places as the place of occurrence of the external cause; Y99.8 Other external cause status
CPT/HCPCS: 64450; 99284; J3490

== ENCOUNTER 2021-07-28 10:18 | Inpatient (IN) | payer MEDICARE, OTHER ==
[~2021-07-28] VITALS: Ht 175.3 cm; Wt 82.1 kg
[~2021-07-28 10:18] MED LIST changes: +MIRT-90 PO; -MIRT15TA7 PO
--- NOTE | 2021-07-28 10:20 | NUR ---
AAOX3, BIBRA 839 from home c/o generalized weakness x 2 days, also c/o right lower molar pain and right big toe pain. 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 Placed on monitor. Awaiting md for eval.
--- NOTE | 2021-07-28 11:17 | NUR ---
BLOOD SAMPLE OBTAINED AND SENT TO LAB
--- NOTE | 2021-07-28 11:27 | NUR ---
COVID SWAB DONE AND SENT TO THE LAB
[2021-07-28 11:50] LABS: BASOPHILS # (AUTO) 0.1 K/uL (0.0-0.2); BASOPHILS % (AUTO) 1.7 % (0.0-2.0); EOSINOPHILS % (AUTO) 1.2 % (0.0-6.0); HEMATOCRIT 49 % (39-51); HEMOGLOBIN 16.4 g/dL (13.5-17.5); LYMPHOCYTES # (AUTO) 1.8 K/uL (0.8-4.8); LYMPHOCYTES % (AUTO) 31.3 % (20.0-44.0); MEAN CORPUSCULAR HGB CONC 34 g/dl (31.0-36.0); MEAN CORPUSCULAR VOLUME 88 fL (80-96); MONOCYTES # (AUTO) 0.4 K/uL (0.1-1.30); NEUTROPHILS # (AUTO) 3.4 K/uL (1.8-8.9); NEUTROPHILS % (AUTO) 58.8 % (43.0-81.0); PLATELET COUNT (AUTO) 242 K/uL (150-450); RED BLOOD CELL COUNT(AUTO) 5.56 MIL/uL (4.5-6.0); WHITE BLOOD COUNT (AUTO) 5.8 K/uL (4.3-11.0)
--- NOTE | 2021-07-28 11:57 | NUR ---
MALOU - [phone]. (CASE WORK).
[2021-07-28 11:59] LABS: CALCIUM, SERUM 9.2 mg/dL (8.5-10.1); CARBON DIOXIDE 30 mmol/L (21-32); CHLORIDE 104 mmol/L (98-107); CREATININE 1.3 mg/dL (0.6-1.3); GLUCOSE 74 mg/dL (74-106); POTASSIUM 3.2 mmol/L (3.5-5.1); SODIUM SERUM 139 mmol/L (136-145); UREA NITROGEN, BLOOD 18 mg/dL (7-18)
[2021-07-28 12:06] LABS: ALANINE AMINOTRANSFERASE 40 U/L (12-78); ALBUMIN 3.8 g/dL (3.4-5.0); ALKALINE PHOSPHATASE 109 U/L (46-116); ASPARTATE AMINOTRANSFERASE 83 U/L (15-37); BILIRUBIN,DIRECT 0.3 mg/dL (0.0-0.2); BILIRUBIN,TOTAL 1.7 mg/dL (0.2-1.0); TOTAL PROTEIN, SERUM 8.2 g/dL (6.4-8.2)
[2021-07-28 12:12] LABS: ACETAMINOPHEN < 10 ug/ml (10-30); ALCOHOL, BLOOD < 3 mg/dL (0-0)
--- NOTE | 2021-07-28 12:33 | NUR ---
URINE COLLECTED AND SENT TO THE LAB
[2021-07-28] MEDS ORDERED: ESCI10TA PO (12:40)
[2021-07-28] MEDS ORDERED: PHEN100C12 PO (12:40)
[2021-07-28] MEDS ORDERED: VALS80TA31 PO (12:41)
[2021-07-28 13:08] LABS: BILIRUBIN,URINE SMALL (NEGATIVE); COLOR,URINE DARK YELLOW (YELLOW); LEUKOCYTE ESTERASE ,URINE NEGATIVE (NEGATIVE); NITRITE, URINE NEGATIVE (NEGATIVE); PROTEIN,URINE TRACE mg/dl (NEGATIVE); UGLUCOSE NEGATIVE (NEGATIVE)
[2021-07-28] MEDS ORDERED: ARIP10TA9 PO (13:38)
[2021-07-28 13:41] LABS: BACTERIA,URINE None seen /HPF (None Seen); RBC,URINE 21-50 /HPF (0-2); SQUAMOUS EPITHELIAL CELL,UR Few /HPF (None Seen); WBC,URINE 0-2 /HPF (0-3)
--- NOTE | 2021-07-28 14:00 | NUR ---
NO AVAILABLE BED AT THIS TIME PER CONSUMER PRODUCT ADVISOR
[2021-07-28] MEDS ORDERED: ASPIRIN 325 MG TABLET ONE (15:26)
[2021-07-28] MEDS ORDERED: ASPIRIN 325 MG TABLET PO ONE (15:30)
--- NOTE | 2021-07-28 15:36 | NUR ---
DR NGUYỄN MADE AWARE OF BP 152/108 AND HR 67. WAITING FOR ORDERS.
--- NOTE | 2021-07-28 15:54 | NUR ---
NURSING SUP GAVE 314-2.
[2021-07-28 16:00] VITALS: BP 157/98
[2021-07-28] MEDS ORDERED: Z GUARD REMEDY 2 OZ OINT TP PRN (16:00)
[2021-07-28] MEDS ORDERED: ACETAMINOPHEN 325 MG TABLET PO PRN (16:00)
[2021-07-28] MEDS ORDERED: DEXTROSE 50%-WATER 50 ML DISP.SYRIN IV PRN (16:00)
[2021-07-28] MEDS ORDERED: MAG HYDROX/AL HYDROX/SIMETH 30 ML UDC PO PRN (16:00)
[2021-07-28] MEDS ORDERED: ONDANSETRON HCL/PF 4 MG/2 ML VIAL IVP PRN (16:00)
[2021-07-28] MEDS ORDERED: MAGNESIUM HYDROXIDE 30 ML UDC PO PRN (16:00)
[2021-07-28] MEDS ORDERED: VALSARTAN 80 MG TABLET PO ONE (16:30)
[2021-07-28] MEDS ORDERED: VALSARTAN 80 MG TABLET ONE (16:33)
--- NOTE | 2021-07-28 16:34 | NUR ---
DIOVAN 80 MG PO GIVEN
--- NOTE | 2021-07-28 16:52 | NUR ---
REPORT GIVEN TO NURSE WATTS
--- NOTE | 2021-07-28 16:56 | NUR ---
THE PATIENT IS TRANSFERED TO [facility] IN STABLE CONDITION AND PER ACLS POLICY
[2021-07-28] MEDS: PHENYTOIN EXTENDED RELEASE 100 MG CAPSULE PO SCH ×2 (17:29→21:01)
[2021-07-28] MEDS: BLOOD SUGAR DIAGNOSTIC 1 EACH STRIP IN SCH ×2 (17:30→21:11)
[2021-07-28] MEDS: ENOXAPARIN SODIUM 40 MG/0.4 ML DISP.SYRIN SQ SCH (17:31)
[2021-07-28] MEDS: IV NS 0.9% 1,000 ML IV PRN (18:40)
--- NOTE | 2021-07-28 18:53 | NUR ---
TELE/RN CLOSING NOTES ADMITTED A MALE PATIENT. INITIAL ASSESSMENT WAS DONE AND RECORDED. PATIENT IS ALERT AND ORIENTED X3. PATIENT IS ON ROOM AIR. PATIENT IN NO APPARENT RESPIRATORY DISTRESS. NOTED. NO COMPLAINED OF PAIN NOTED AT THIS TIME. TELE MONITOR READING SINUS RHYTHM 72 BPM. IV ACCESS AT RIGHT UPPER ARM # 20 G WITH IV FLUID OF NS AT 75ML/HOUR ON AND INFUSING WELL. SEEN AND EXAMINED BY MD WITH ORDERS MADE AND CARRIED OUT. ALL DUE MEDICATIONS WAS GIVEN. SAFETY PRECAUTION WAS IN PLACED. BED IN LOWEST POSITION AND LOCKED. SIDERAILS UP X2. CALL LIGHT WITHIN REACH. WILL ENDORSED TO ENGINEERING DESIGNER FOR ISIDRO.
[2021-07-28] MEDS ORDERED: POTASSIUM CHLORIDE 20 MEQ TAB.PRT.SR PO SCH (19:00)
--- NOTE | 2021-07-28 20:33 | NUR ---
MEDICAL OFFICE CLERK OPENING NOTES Patient is A&Ox3, but forgetful at times. Denies pain or discomfort. No signs of distress. Reminded patient that he is on bed rest and to use call light if he needs to use the restroom. Bed alarm on, bed in lowest position with brakes on, call light within reach. NS infusing to MICHAEL #20G at 75cc/hr. Will continue to monitor.
[2021-07-28 20:51] VITALS: BP 105/66
[2021-07-28] MEDS: QUETIAPINE FUMARATE 100 MG TABLET PO SCH (21:01)
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
--- NOTE | 2021-07-29 00:15 | NUR ---
Refused midnight vital signs x3.
--- NOTE | 2021-07-29 05:26 | NUR ---
at 0515 patient noted to have blood on gown upon further inspection it was coming from his diaper. Urine was very dark red. Patient was then able to have BM in bedside commode which clearly had no blood. Notified on-call with new order to send urine to lab for UA. Patient then was able to urinate 200cc more into a brand new urinal -urine collected and put in fridge still dark red. Lab notified.
[2021-07-29] MEDS: IV NS 0.9% 1,000 ML IV PRN (05:40)
[2021-07-29 06:07] LABS: BILIRUBIN,URINE MODERATE (NEGATIVE); LEUKOCYTE ESTERASE ,URINE NEGATIVE (NEGATIVE); NITRITE, URINE NEGATIVE (NEGATIVE); PH,URINE 6.5 (5.0-8.0); PROTEIN,URINE >=300 mg/dl (NEGATIVE); UGLUCOSE NEGATIVE (NEGATIVE); UROBILINOGEN,URINE >=8.0 EU/dL (0.2)
[2021-07-29 06:08] LABS: COLOR,URINE RED (YELLOW)
[2021-07-29 06:09] LABS: RBC,URINE TOO NUMEROUS TO COUN /HPF (0-2)
[2021-07-29 06:10] LABS: BACTERIA,URINE Few /HPF (None Seen); SQUAMOUS EPITHELIAL CELL,UR Few /HPF (None Seen); WBC,URINE 0-2 /HPF (0-3)
[2021-07-29 06:39] LABS: BASOPHILS % (AUTO) 0.4 % (0.0-2.0); EOSINOPHILS % (AUTO) 2.2 % (0.0-6.0); HEMATOCRIT 42 % (39-51); HEMOGLOBIN 14.3 g/dL (13.5-17.5); LYMPHOCYTES # (AUTO) 2.9 K/uL (0.8-4.8); MEAN CORPUSCULAR HGB CONC 34 g/dl (31.0-36.0); MEAN CORPUSCULAR VOLUME 87 fL (80-96); MONOCYTES # (AUTO) 0.4 K/uL (0.1-1.30); MONOCYTES % (AUTO) 8.4 % (2.0-12.0); NEUTROPHILS # (AUTO) 1.8 K/uL (1.8-8.9); PLATELET COUNT (AUTO) 195 K/uL (150-450); RED BLOOD CELL COUNT(AUTO) 4.82 MIL/uL (4.5-6.0); WHITE BLOOD COUNT (AUTO) 5.2 K/uL (4.3-11.0)
[2021-07-29] MEDS: BLOOD SUGAR DIAGNOSTIC 1 EACH STRIP IN SCH ×4 (06:52→21:26)
--- NOTE | 2021-07-29 06:54 | NUR ---
No further episodes of hematuria. Patient still says he feels weak. Bed alarm on. BSC with assist. only. No s/s of hypo or hyperglycemic reactions. Denies chest pain, no profuse sweating. Continues on bedrest. A&Ox2.
[2021-07-29 07:00] LABS: BILIRUBIN,TOTAL 0.7 mg/dL (0.2-1.0); CALCIUM, SERUM 8.2 mg/dL (8.5-10.1); CREATININE 1.1 mg/dL (0.6-1.3); MAGNESIUM 2.3 mg/dL (1.8-2.4); PHOSPHORUS 1.8 mg/dL (2.5-4.9); POTASSIUM 3.7 mmol/L (3.5-5.1); TOTAL PROTEIN, SERUM 6.7 g/dL (6.4-8.2)
--- NOTE | 2021-07-29 07:27 | NUR ---
PROCESS DEVELOPMENT MANAGER OPENING NOTES: RECEIVED PATIENT AWAKE IN BED, A/O X2, WITH PERIODS OF FORGETFULNESS . IN NO APPARENT DISTRESS NOTED BREATHING EVEN AND UNLABORED. ON ROOM AIR, TOLERATING WELL. NO COMPLAIN OF PAIN AND DISCOMFORT AT THIS TIME.PATIENT WITH IV LINE AT RAC #20 WITH ONGOING NS 1000ML @75ML PER/ HR, INFUSING WELL,.PATIENT ON TELEMONITORING WITH SR-80'S, NO CARDIAC DISTRESS NOTED. BED ON LOWEST LOCKED POSITION. CALL LIGHT AND BEDSIDE TABLE WITHIN EASY REACH. SAFETY MEASURES IN PLACE. WILL CONTINUE TO MONITOR PT. ACCDGLY.
[2021-07-29 07:58] LABS: THYROID STIMULATING HORMONE 1.563 uIU/mL (0.358-3.74)
[2021-07-29 08:00] VITALS: BP 132/81
--- NOTE | 2021-07-29 08:14 | NUR ---
RN NOTES PT SEEN AND EVALUATED BY DR WHITT WITH ORDER TO HOLD ASPIRIN, LOVENOX AND DO CT ABDOMEN AND PELVIS W/O CONTRAST TODAY.
[2021-07-29] MEDS: ASPIRIN EC 81 MG TABLET.DR PO SCH (08:17)
[2021-07-29] MEDS ORDERED: NEUTRA PHOS 1 POWD.PACKET PO ONE (08:30)
[2021-07-29] MEDS: ARIPIPRAZOLE 5 MG TABLET PO SCH (08:42)
[2021-07-29] MEDS: PANTOPRAZOLE 40 MG TABLET.DR PO SCH (08:42)
[2021-07-29] MEDS: PHENYTOIN EXTENDED RELEASE 100 MG CAPSULE PO SCH ×4 (08:42→21:26)
[2021-07-29] MEDS: VALSARTAN 80 MG TABLET PO SCH (08:43)
[2021-07-29] MEDS: ESCITALOPRAM OXALATE (10 MG) 10 MG TABLET PO SCH (08:43)
[2021-07-29] MEDS: INSULIN REGULAR, HUMAN 100 UNIT/ML 3 ML VIAL SQ PRN ×2 (11:36→17:04)
[2021-07-29] MEDS ORDERED: CT SWABBABLE VALVE TRANS SET 1 EA INFUS.SET MC ONE (13:39)
[2021-07-29] MEDS ORDERED: IV NS 0.9% 250 ML IV ONE (13:39)
[2021-07-29] MEDS ORDERED: IOHEXOL-300 100 ML VIAL IV ONE (13:39)
[2021-07-29 16:00] VITALS: BP 164/98
[2021-07-29] MEDS: hydrALAZINE HCL 25 MG TABLET PO PRN (17:34)
--- NOTE | 2021-07-29 17:36 | NUR ---
RN NOTES PATIENT NOTED WITH ELEVATED BP OF 164/98, DR. CALLES ON UNIT WITH ORDER TO GIVE APRESOLINE 25 MG PO Q6 HOURS PRN FOR SBP>160. ORDERED CARRIED OUT.
--- NOTE | 2021-07-29 18:30 | NUR ---
MS RN CLOSING NOTES: PATIENT AWAKE IN BED, A/O X2-3, WITH PERIODS OF FORGETFULNESS . IN NO APPARENT DISTRESS NOTED BREATHING EVEN AND UNLABORED. ON ROOM AIR, TOLERATING WELL. NO COMPLAIN OF PAIN AND DISCOMFORT AT THIS TIME.PATIENT WITH IV LINE AT RAC #20 WITH ONGOING NS 1000ML @75ML PER/ HR, INFUSING WELL. ALL NEEDS ATTENDED. BED ON LOWEST LOCKED POSITION. CALL LIGHT AND BEDSIDE TABLE WITHIN EASY REACH. SAFETY MEASURES IN PLACE. WILL ENDORSED PATIENT TO FOOD PROCESSING SCIENTIST NURSE FOR CONTINUITY OF CARE.
--- NOTE | 2021-07-29 20:00 | NUR ---
Patient is awake A&Ox2, resting in bed watching TV at this time. RAC #20G IV currently infusing NS at 75cc/hr. No signs of bleeding at this time. Will monitor for hematuria. Denies chest pain. Patient still feels weak and is unsteady to walk bsc with assist only. Bed alarm on, bed in lowest position. call light within reach.
[2021-07-29] MEDS: ENOXAPARIN SODIUM 40 MG/0.4 ML DISP.SYRIN SQ SCH (20:04)
--- NOTE | 2021-07-29 20:05 | NUR ---
lovenox non-administered d/t hematuria.
[2021-07-29] MEDS: QUETIAPINE FUMARATE 100 MG TABLET PO SCH (21:26)
--- NOTE | 2021-07-29 22:09 | NUR ---
Patient had 3 liquid BMs in span of 3 hours. Will send specimen to lab.
[2021-07-29 22:39] VITALS: BP 159/92
[2021-07-30] MEDS: IV NS 0.9% 1,000 ML IV PRN (04:18)
--- NOTE | 2021-07-30 06:54 | NUR ---
Patient has been A&Ox2 forgetful overnight. Urine has now turned yellow and clear in color. Specimen put in biohazard fridge for total creatine and protein of urine. Patient's diarrhea has subsided as well. NS at 75cc/hr currently infusing to RAC #20G PIV no s/s of infiltration.
[2021-07-30 06:55] LABS: CREATININE, URINE 45.9 MG/DL (30.0-125.0); URINE TOTAL PROTEIN 5.5 mg/dL (0-11.9)
[2021-07-30] MEDS: BLOOD SUGAR DIAGNOSTIC 1 EACH STRIP IN SCH ×2 (07:03→12:10)
--- NOTE | 2021-07-30 07:48 | NUR ---
RN OPENING NOTE PT AWAKE IN BED RESTING. ON RA WITH NO SOB OR RESPIRATORY DISTRESS PRESENT. A/O X 2 AND FORGETFUL. NO COMPLAINT OF PAIN OR NAUSEA. NO VP HUMAN RESOURCES PRESENT. NO EDEMA PRESENT. FALL RISK PRECAUTIONS, BED ALARM ON. ON BEDREST WITH DIAPER PRESENT. SKIN IS INTACT. IV PRESENT ON R AC 20G AND FLUSHES WELL. NS RUNNING AT 75 ML/HR. LABS AND ORDERS REVIEWED. SAFETY MEASURES IN PLACE. SIDE RAILS RAISED. BED LOWERED. CALL LIGHT WITHIN REACH. WILL CONTINUE TO MONITOR.
[2021-07-30] MEDS: ARIPIPRAZOLE 5 MG TABLET PO SCH (08:48)
[2021-07-30] MEDS: PHENYTOIN EXTENDED RELEASE 100 MG CAPSULE PO SCH ×4 (08:48→21:11)
[2021-07-30] MEDS: ASPIRIN EC 81 MG TABLET.DR PO SCH (08:48)
[2021-07-30] MEDS: VALSARTAN 80 MG TABLET PO SCH (08:48)
[2021-07-30] MEDS: PANTOPRAZOLE 40 MG TABLET.DR PO SCH (08:48)
[2021-07-30] MEDS: ESCITALOPRAM OXALATE (10 MG) 10 MG TABLET PO SCH (08:48)
[2021-07-30] MEDS: VITAMINS A AND D 56.7 GM TUBE TP SCH (08:50)
[2021-07-30 10:06] LABS: EOSINOPHILS % (AUTO) 2.1 % (0.0-6.0); HEMATOCRIT 45 % (39-51); HEMOGLOBIN 14.8 g/dL (13.5-17.5); LYMPHOCYTES # (AUTO) 1.8 K/uL (0.8-4.8); LYMPHOCYTES % (AUTO) 40.2 % (20.0-44.0); MEAN CORPUSCULAR HGB CONC 33 g/dl (31.0-36.0); MEAN CORPUSCULAR VOLUME 87 fL (80-96); MONOCYTES # (AUTO) 0.4 K/uL (0.1-1.30); MONOCYTES % (AUTO) 7.8 % (2.0-12.0); NEUTROPHILS # (AUTO) 2.2 K/uL (1.8-8.9); NEUTROPHILS % (AUTO) 48.9 % (43.0-81.0); PLATELET COUNT (AUTO) 198 K/uL (150-450); RED BLOOD CELL COUNT(AUTO) 5.11 MIL/uL (4.5-6.0); WHITE BLOOD COUNT (AUTO) 4.5 K/uL (4.3-11.0)
[2021-07-30 10:52] LABS: CALCIUM, SERUM 8.5 mg/dL (8.5-10.1); MAGNESIUM 2.1 mg/dL (1.8-2.4); PHOSPHORUS 2.1 mg/dL (2.5-4.9); POTASSIUM 3.4 mmol/L (3.5-5.1)
[2021-07-30] MEDS ORDERED: POTASSIUM CHLORIDE 20 MEQ TAB.PRT.SR PO ONE (13:00)
[2021-07-30] MEDS ORDERED: NEUTRA PHOS 1 POWD.PACKET PO ONE (13:00)
--- NOTE | 2021-07-30 14:57 | NUR ---
RN NOTE PT POSITIVE FOR CDIFF. CN AWARE. ROOMMATE MOVED AND CONTACT PRECAUTIONS INITIATED.
[2021-07-30] MEDS ORDERED: ATORVASTATIN 40 MG TABLET PO SCH (16:00)
[2021-07-30] MEDS: AMLODIPINE BESYLATE 5 MG TABLET PO SCH (16:22)
[2021-07-30] MEDS: hydrALAZINE HCL 25 MG TABLET PO PRN (16:23)
[2021-07-30 16:42] VITALS: BP 172/84
--- NOTE | 2021-07-30 18:39 | NUR ---
RN CLOSING NOTE PT AWAKE IN BED RESTING. ON RA WITH NO SOB OR RESPIRATORY DISTRESS PRESENT. A/O X 2 AND FORGETFUL. NO COMPLAINT OF PAIN OR NAUSEA. NO PHLEBOTOMY SUPERVISOR PRESENT. NO EDEMA PRESENT. FALL RISK PRECAUTIONS, BED ALARM ON. ON BEDREST WITH DIAPER PRESENT. SKIN IS INTACT. IV PRESENT ON R AC 20G AND FLUSHES WELL. NS RUNNING AT 75 ML/HR. LABS AND ORDERS REVIEWED. SAFETY MEASURES IN PLACE. SIDE RAILS RAISED. BED LOWERED. CALL LIGHT WITHIN REACH. WILL GIVE REPORT TO NIGHT NURSE FOR ISIDRO.
--- NOTE | 2021-07-30 19:40 | NUR ---
MS/RN OPENING NOTE RECEIVED PATIENT RESTING IN BED. AWAKE, ALERT AND ORIENTED X 2. ABLE TO MAKE NEEDS KNOWN. DENIES PAIN AT THIS TIME. CONTINUES ON ROOM AIR WITH NO S/SX OF RESPIRATORY DISTRESS NOTED. IV ACCESS TO RIGHT AC #20G INTACT AND PATENT. CONTINUES ON IVF NS @ 75ML/HR. CALL LIGHT WITHIN REACH. ASPIRATION, FALL AND SAFETY PRECAUTIONS MAINTAINED. WILL CONTINUE TO MONITOR.
[2021-07-30 20:00] VITALS: BP 142/89
[2021-07-30] MEDS: ENOXAPARIN SODIUM 40 MG/0.4 ML DISP.SYRIN SQ SCH (21:00)
[2021-07-30] MEDS: QUETIAPINE FUMARATE 100 MG TABLET PO SCH (21:11)
--- NOTE | 2021-07-31 06:40 | NUR ---
MS/RN CLOSING NOTE PATIENT CURRENTLY SLEEPING IN BED. ALERT AND ORIENTED X 2. ABLE TO MAKE NEEDS KNOWN. DENIES PAIN AT THIS TIME. CONTINUES ON ROOM AIR WITH NO S/SX OF RESPIRATORY DISTRESS NOTED. IV ACCESS TO RIGHT AC #20G INTACT AND PATENT. CONTINUES ON IVF NS @ 75ML/HR. NO BM NOTED THIS SHIFT. CALL LIGHT WITHIN REACH. ASPIRATION, FALL AND SAFETY PRECAUTIONS MAINTAINED. WILL ENDORSE PLAN OF CARE TO ONCOMING SHIFT.
[2021-07-31 06:49] LABS: EOSINOPHILS % (AUTO) 1.5 % (0.0-6.0); HEMATOCRIT 48 % (39-51); HEMOGLOBIN 15.8 g/dL (13.5-17.5); LYMPHOCYTES # (AUTO) 2.1 K/uL (0.8-4.8); MEAN CORPUSCULAR HGB CONC 33 g/dl (31.0-36.0); MEAN CORPUSCULAR VOLUME 87 fL (80-96); MONOCYTES # (AUTO) 0.3 K/uL (0.1-1.30); NEUTROPHILS # (AUTO) 2.4 K/uL (1.8-8.9); NEUTROPHILS % (AUTO) 48.5 % (43.0-81.0); PLATELET COUNT (AUTO) 213 K/uL (150-450); RED BLOOD CELL COUNT(AUTO) 5.48 MIL/uL (4.5-6.0)
[2021-07-31 06:57] LABS: CALCIUM, SERUM 9.2 mg/dL (8.5-10.1); CREATININE 0.9 mg/dL (0.6-1.3); MAGNESIUM 2.2 mg/dL (1.8-2.4); PHOSPHORUS 2.7 mg/dL (2.5-4.9)
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
[2021-07-31 08:00] VITALS: BP 169/100
[2021-07-31] MEDS: ESCITALOPRAM OXALATE (10 MG) 10 MG TABLET PO SCH (09:36)
[2021-07-31] MEDS: ARIPIPRAZOLE 5 MG TABLET PO SCH (09:37)
[2021-07-31] MEDS: AMLODIPINE BESYLATE 5 MG TABLET PO SCH (09:37)
[2021-07-31] MEDS: ASPIRIN EC 81 MG TABLET.DR PO SCH (09:37)
[2021-07-31] MEDS: PHENYTOIN EXTENDED RELEASE 100 MG CAPSULE PO SCH ×2 (09:41→12:12)
[2021-07-31 09:42] VITALS: BP 169/100
[2021-07-31] MEDS: VALSARTAN 80 MG TABLET PO SCH (09:42)
[2021-07-31] MEDS: hydrALAZINE HCL 25 MG TABLET PO PRN (09:42)
[2021-07-31] MEDS: PANTOPRAZOLE 40 MG TABLET.DR PO SCH (09:42)
[2021-07-31] MEDS: VITAMINS A AND D 56.7 GM TUBE TP SCH (09:42)
--- NOTE | 2021-07-31 14:25 | NUR ---
DISCHARGE NOTE PATIENT LEFT HOSPITAL VIA GURNEY WITH EMT. PATIENT WAS STABLE NO DISTRESS. EDUCATION AND MEDICATION ORDERS PROVIDED AND GIVEN TO PATIENT. SKIN INTACT, IV AND ID BAND WERE REMOVED.
== END 2021-07-31 14:30 | disposition home or self-care (01) | DRG 917 ==
LOC: ER 10:20 → EDBD 16:07 → TELE 16:07 → MED 07-29 09:31
PROVIDERS: ADMIT Hospitalist; ATTEND Hospitalist
DX: T43.621A Poisoning by amphetamines, accidental (unintentional), initial encounter (principal); I21.A1 Myocardial infarction type 2; R64 Cachexia; E87.6 Hypokalemia; I10 Essential (primary) hypertension; F17.210 Nicotine dependence, cigarettes, uncomplicated; Y92.9 Unspecified place or not applicable; I25.10 Atherosclerotic heart disease of native coronary artery without angina pectoris; Z86.73 Personal history of transient ischemic attack (TIA), and cerebral infarction without residual deficits; I25.2 Old myocardial infarction; E11.9 Type 2 diabetes mellitus without complications; Z88.0 Allergy status to penicillin; E78.5 Hyperlipidemia, unspecified; Z83.3 Family history of diabetes mellitus; Z82.49 Family history of ischemic heart disease and other diseases of the circulatory system; Z80.9 Family history of malignant neoplasm, unspecified; E83.39 Other disorders of phosphorus metabolism; E80.6 Other disorders of bilirubin metabolism; B35.1 Tinea unguium; N40.0 Benign prostatic hyperplasia without lower urinary tract symptoms; F20.9 Schizophrenia, unspecified; F15.90 Other stimulant use, unspecified, uncomplicated; G93.89 Other specified disorders of brain; I67.2 Cerebral atherosclerosis; I70.8 Atherosclerosis of other arteries; K08.89 Other specified disorders of teeth and supporting structures; K57.90 Diverticulosis of intestine, part unspecified, without perforation or abscess without bleeding; K80.20 Calculus of gallbladder without cholecystitis without obstruction; L60.0 Ingrowing nail; L85.3 Xerosis cutis; M20.41 Other hammer toe(s) (acquired), right foot; M20.42 Other hammer toe(s) (acquired), left foot; N28.1 Cyst of kidney, acquired; N30.91 Cystitis, unspecified with hematuria; M62.562 Muscle wasting and atrophy, not elsewhere classified, left lower leg; M62.561 Muscle wasting and atrophy, not elsewhere classified, right lower leg
CPT/HCPCS: 36415; 70450-TC; 71045-TC; 74178; 80048-TC; 80053-TC; 80061-TC; 80076-TC; 80185-TC; 81001; 82570-TC; 82962-TC; 83735-TC; 84100-TC; 84155-TC; 84443-TC; 84484-TC; 85025-TC; 85730-TC; 87081-TC; 93307-TC; 97116-TC; 97530-TC; C9803; G0378; G0480; J1650; J1815; J7030; J7050; Q9967